=== PATIENT | female | born 1945 | race Caucasian/White ===

== ENCOUNTER 2023-05-05 09:20 | Outpatient (OUT) | payer MEDICARE, SELFPAY ==
[2023-05-05 10:12] LABS: Estimated Average Glucose 157 mg/dL; Glycohemoglobin A1C 7.1 % (4.5-6.2)
== END 2023-05-05 09:21 | disposition home or self-care (01) ==
PROVIDERS: PCP Internal Medicine; Visit Provider Internal Medicine
DX: E11.65 Type 2 diabetes mellitus with hyperglycemia (principal)
CPT/HCPCS: 36415; 83036

== ENCOUNTER 2023-12-23 08:47 | Outpatient (OUT) | payer MEDICARE, SELFPAY ==
[2023-12-23 11:10] LABS: Estimated Average Glucose 183 mg/dL
== END 2023-12-23 08:48 | disposition home or self-care (01) ==
PROVIDERS: PCP Internal Medicine; Visit Provider Internal Medicine
DX: E11.65 Type 2 diabetes mellitus with hyperglycemia (principal)
CPT/HCPCS: 36415; 83036

== ENCOUNTER 2024-04-18 09:39 | Outpatient (OUT) | payer MEDICARE, SELFPAY ==
[2024-04-18 11:38] LABS: Estimated Average Glucose 157 mg/dL; Glycohemoglobin A1C 7.1 % (4.5-6.2)
== END 2024-04-18 09:40 | disposition home or self-care (01) ==
LOC: LAB 09:40
PROVIDERS: PCP Internal Medicine; Visit Provider Internal Medicine
DX: E11.65 Type 2 diabetes mellitus with hyperglycemia (principal)
CPT/HCPCS: 36415; 83036

== ENCOUNTER 2024-08-20 08:13 | Outpatient (RCR) | payer MEDICARE, SELFPAY | END 2024-09-03 14:54 | disposition home or self-care (01) | LOC: PT 08:13 | PROVIDERS: PCP Internal Medicine; Visit Provider Nurse Practitioner Family | DX: M17.12 Unilateral primary osteoarthritis, left knee (principal); Z98.890 Other specified postprocedural states; Z87.828 Personal history of other (healed) physical injury and trauma | CPT/HCPCS: 97035; 97110; 97140; 97161 ==

== ENCOUNTER 2024-09-02 09:47 | Outpatient (OUT) | payer MEDICARE, SELFPAY ==
--- OUTSIDE RECORDS SUMMARY | 2024-09-02 10:09 | XMS_ITS | CCD ---
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 [employer] Name Role Phone DO Nixon Villagomez Primary Care Provider MD Saman Chen Attending Provider Self, Referral Attending Provider Unavailable DO Laurel Jones Referring Provider DO Laurel Jones Attending Provider DR NIXON VILLAGOMEZ Admitting Unavailable HERNANDO, DR KNIGHT Attending Unavailable HERNANDO, DR KNIGHT Primary Care Unavailable HERNANDO, DR KNIGHT Consulting Unavailable Nixon Villagomez Unavailable DO Nixon Villagomez Primary Care Provider Self, Referral Attending Provider Unavailable DO Nixon Villagomez Primary Care Provider [phone] DO Nixon Villagomez Attending Provider Nixon Villagomez Admitting Unavailable Hernando, Nixon Attending Unavailable Hernando, Nixon Primary Care Unavailable Nixon Villagomez Admitting Unavailable Hernando, Nixon Attending Unavailable Hernando, Nixon Primary Care Unavailable ZEV, RICK Wild Referring Unavailable HERNANDO, NIXON Laurent Primary Care Unavailable ZEV, RICK Wild Attending Unavailable ZEV, RICK Wild Referring Unavailable BALL, NIXON Laurent Primary Care Unavailable ZEV, RICK Wild Referring Unavailable BALL, NIXON E Primary Care Unavailable ZEV, RICK Wild Admitting Unavailable ZEV, RICK Wild Attending Unavailable EVELINE ALMAGUER Attending Unavailable NIXON VILLAGOMEZ Primary Care Unavailable Nixon Villagomez MD Primary Care Provider GREGORIO KINSEY Attending Unavailable GREGORIO KINSEY Attending Unavailable GREGORIO KINSEY Attending Unavailable APLING, REANNA B Attending Unavailable APLING, REANNA B Referring Unavailable APLING, REANNA B Attending Unavailable GREGORIO KINSYE Attending Unavailable APLING, REANNA B Referring Unavailable ZEVRICK Attending Unavailable APLING, REANNA B Attending Unavailable APLING, REANNA B Attending Unavailable GREGORIO KINSEY Attending Unavailable REANNA SIMMONS Attending Unavailable Allergies Allergy Classification Reported Allergen(s) Allergy Type Date of Onset Reaction(s) Facility (1 source) Ibandronate; Translations: [IBANDRONATE] Drug Allergy 05-21-2024 [facility] (20 sources) Ibandronate Drug Allergy 04-15-2024 [facility] Work Phone: Medications Current Medications Medication Drug Class(es) Dates Sig (Normalized) Sig (Original) acetaminophen 325 mg / HYDROcodone bitartrate 5 mg oral tablet (4 sources) Opioid Agonist Start: 06-06-2024 End: 06-12-2024 take 1 tablet by mouth every six hours for pain HYDROcodone-acetam inophen ([place]) 5-325 MG tablet Indications: Post-op pain Take 1 tablet by mouth every 6 (six) hours if needed for severe pain for up to 3 days 12 tablet 06/06/2024 06/12/2024 Discontinued (Med list cleanup) Calcium + D 500-1000-40 MG-UNT-MCG (14 sources) Calcium + D 500-1000-40 MG-UNT-MCG as directed Orally Active calcium carbonate 1500 mg oral tablet (20 sources) calcium carbonat e 1500 (600 Ca) MG tablet Take 1,500 mg by mouth every 12 (twelve) hours. Active calcium carbonate 1250 mg / cholecalciferol 1000 unt / vitamin k 0.4 mg chewable tablet (20 sources) Vitamin D Start: 12-20-2023 Calcium-Vitamin D-Vitamin K 500-1000-40 MG-UNT-MCG chewable tablet 1 tablet 12/20/2023 Active Start: 12-20-2023 take 1 tablet by talita th once daily Calcium-Vitamin D3-Vitamin K Active 1 TAB PO Daily December 20, 2023 12:00am Calcium + D 500- 1000-40 MG-UNT-MCG as directed Orally Active Contour Next Test - (18 sources) Contour Next Sania t - Use to test home BS In Vitro daily for 30 days Active Contour Next Sania t - as directed In Vitro Active glyBURIDE 1.25 mg oral tablet (20 sources) Sulfonylurea Start: 02-26-2024 End: 04-23-2024 Glyburide Discontinued 0 .ROUTE .COMPLEX 270 February 26, 2024 6:51am April 23, 2024 10:37am TAKE 2 TABLETS IN THE MORNING AND 1 TABLET IN THE EVENING Start: 02-01-2024 End: 02-26-2024 take 2 tablets by mouth in the morning, then take 1 tablet by mouth in the evening Glyburide Discontinued 1.25 MG PO .COMPLEX 90 February 01, 2024 4:50pm February 26, 2024 6:51am 2 tablets in the morning and 1 tablet in the evening Start: 12-26-2023 End: 01-26-2024 take 2.5 mg by mouth once daily Glyburide Discontinued 2.5 MG PO Daily December 26, 2023 7:29am January 26, 2024 3:20pm Start: 08-04-2022 End: 12-26-2023 take 1 tablet by mouth at mealtime glyBURIDE (Diabeta) 1.25 MG tablet Take 1.25 mg by mouth in the morning. Take with meals. 08/04/2022 Active Start: 08-04-2022 take 1 tablet by mouth at dinn er glyBURIDE 1.25 MG 1 tablet Orally 30 minutes prior to evening meal for 30 days January, Active Start: 08-04-2022 End: 02-01-2024 take 1.25 mg by mouth twice daily Glyburide Active 1.25 MG PO Twice daily April 23, 2024 10:36am glyBURIDE 2.5 MG 30 minutes prior to a meal Orally Twice daily for 90 days Active losartan potassium 25 mg oral tablet (20 sources) Angiotensin 2 Receptor Loyd Start: 07-03-2023 End: 11-06-2023 take 1 tablet by mouth once daily losartan (Cozaar) 25 MG tablet TAKE 1 TABLET BY MOUTH EVERY DAY FOR 30 DAYS 07/03/2023 Active metroNIDAZOLE 7.5 mg/ml topical cream (14 sources) Nitroimidazole Antimicrobial metroNIDAZOLE 0.75 % 1 application Externally Twice a day for 30 days Active olmesartan medoxomil 5 mg oral tablet (1 source) Angiotensin 2 Receptor Loyd Start: 06-06-2023 take 1 tablet by mouth every twenty-four hours Olmesartan Medoxomil 5 MG 1 tablet Orally Once a day for 30 days Jun, Active omeprazole 40 mg delayed release oral capsule (20 sources) Proton Pump Inhibitor Start: 12-20-2023 take 1 capsule by mouth every twenty-four hours as needed omeprazole (PriLOSEC) [address] capsule Take 40 mg by mouth Daily as needed 12/20/2023 Active Start: 08-10-2023 take 1 capsule by [facility] once daily Omeprazole 40 MG 1 capsule 30 minutes before morning meal Orally Once a day for 30 days Aug, Active tetracycline hydrochloride 250 mg oral capsule (4 sources) Tetracycline-class Antimicrobial take 1 capsule by mouth every six hours Tetracycline HCl 250 MG 1 capsule on an empty stomach Orally every 6 hrs Active Completed/Discontinued Medications Medication Drug Class(es) Dates Sig (Normalized) Sig (Original) diclofenac sodium 75 mg delayed release oral tablet (6 sources) Nonsteroidal Anti-inflammatory Drug Start: 04-15-2024 End: 05-15-2024 take 1 tablet by mouth in the morning diclofenac (Voltaren) 75 MG EC tablet Indications: Arthritis of left knee Take 1 tablet (75 mg) by mouth in the morning and 1 tablet (75 mg) before bedtime. Do not crush, chew, or split.. 60 tablet 2 04/15/2024 05/14/2024 Discontinued (Discontinued by another clinician) Problems Active Problems Problem Classification Problem Date Documented Date Episodic/Chronic Calculus of urinary tract (20 sources) Kidney stone; Translations: [Calculus of kidney] Episodic Diabetes mellitus with complications (20 sources) Type 2 diabetes mellitus with hyperglycemia; Translations: [Hyperglycemia due to type 2 diabetes mellitus] Onset: 10-14-2022 Chronic Diabetes mellitus without complication (18 sources) Type 2 diabetes mellitus without complications; Translations: [Diabetes mellitus without complication] Onset: 03-18-2013 05-10-2024 Chronic Disorders of lipid metabolism (20 sources) Pure hypercholesterolemia, unspecified; Translations: [Hypercholesterolemia] Onset: 10-17-2022 Chronic Esophageal disorders (20 sources) Gastro-esophageal reflux disease with esophagitis; Translations: [Gastroesophageal reflux disease with esophagitis without hemorrhage] Onset: 05-10-2024 12-20-2023 Chronic Essential hypertension (20 sources) Essential hypertension; Translations: [Essential (primary) hypertension] Onset: 08-31-2023 Chronic Gout and other crystal arthropathies (4 sources) Chondrocalcinosis of wrist joint; Translations: [Other chondrocalcinosis, right wrist] Chronic Joint disorders and dislocations; trauma-related (1 source) Derangement of left knee; Translations: [Unspecified internal derangement of left knee] 04-30-2024 Chronic Menopausal disorders (17 sources) Postartificial menopausal syndrome; Translations: [Other specified menopausal and perimenopausal disorders] Onset: 05-10-2024 05-10-2024 Chronic Mycoses (2 sources) Onychomycosis; Translations: [Tinea unguium] 07-22-2024 Episodic Nutritional deficiencies (20 sources) Vitamin D deficiency, unspecified; Translations: [Vitamin D deficiency] Onset: 10-17-2022 Chronic Osteoarthritis (10 sources) Arthritis of left knee; Translations: [Unilateral primary osteoarthritis, left knee] 06-07-2024 Chronic Osteoporosis (20 sources) Primary osteoporosis; Translations: [Age-related osteoporosis without current pathological fracture] Onset: 05-10-2024 Chronic Other aftercare (2 sources) Other nursing home (current) drug therapy; Translations: [OTH LONGTERM CURRENT DRUG THERAPY] Onset: 10-17-2022 Episodic Other circulatory disease (14 sources) Elevated blood-pressure reading without diagnosis of hypertension; Translations: [Elevated blood-pressure reading, without diagnosis of hypertension] Episodic Other circulatory disease (2 sources) Elevated blood-pressure reading, without diagnosis of hypertension Episodic Other connective tissue disease (2 sources) Pain of toe of left foot; Translations: [Pain in left toe(s)] 07-22-2024 Episodic Other connective tissue disease (2 sources) Pain of toe of right foot; Translations: [Pain in right toe(s)] 07-22-2024 Episodic Other diseases of veins and lymphatics (2 sources) Vascular insufficiency; Translations: [Venous insufficiency (chronic) (peripheral)] 07-22-2024 Episodic Other inflammatory condition of skin (18 sources) Rosacea; Translations: [Rosacea, unspecified] Chronic Other inflammatory condition of skin (3 sources) Rosacea, unspecified Chronic Other nervous system disorders (1 source) Postoperative pain ; Translations: [Other acute postprocedural pain] 06-04-2024 Episodic Other nutritional; endocrine; and metabolic disorders (17 sources) Overweight; Translations: [Overweight] 12-21-2023 Episodic Other nutritional; endocrine; and metabolic disorders (4 sources) Overweight; Translations: [Overweight] Episodic Other screening for suspected conditions (not mental disorders or infectious disease) (4 sources) Encounter for screening mammogram for malignant neoplasm of breast; Translations: [Encounter for screening for malignant neoplasm of colon] Onset: 04-19-2024 Episodic Residual codes; unclassified (2 sources) Asymptomatic menopausal state; Translations: [Asymptomatic menopausal state] Onset: 04-19-2024 Episodic Rheumatoid arthritis and related disease (20 sources) Inflammatory polyarthropathy; Translations: [Inflammatory polyarthropathy] Onset: 05-10-2024 Chronic Spondylosis; intervertebral disc disorders; other back problems (18 sources) Cervical spondylosis; Translations: [Spondylosis without myelopathy or radiculopathy, cervical region] Chronic Sprains and strains (1 source) Strain of muscle, fascia and tendon at neck level, initial encounter Episodic Unclassified (1 source) left knee meniscal tear Onset: 06-05-2024 Past or Other Problems Problem Classification Problem Date Documented Da te Episodic/Chronic Esophageal disorders (1 source) Esophageal disorders Joint disorders and dislocations; trauma-related (2 sources) Acute meniscal tear, medial; Translations: [Complex tear of medial meniscus, current injury, left knee, initial encounter] 05-14-2024 Episodic Other non-traumatic joint disorders (2 sources) Pain in left knee; Translations: [Pain in joint, lower leg] 05-14-2024 Episodic Results Test Name Value Interpretation Reference Range Facility BASIC METABOLIC PANLon 05-21 Anion gap [Moles/Vol] 10 mmol/L Normal 5-15 [facility] Comment on above: Performed By: #### B MP #### [facility] ([id number]) [address] [facility] [facility] [facility] [address] [place] [address] Calcium [Mass/Vol] 9.6 mg/dL Normal 8.5-10.5 [facility] Comment on above: Performed By: #### B MP #### [facility] ([id number]) [address] [facility] [place] [address] Chloride [Moles/Vol] 102 mmol/L Normal 98-109 [facility] Comment on above: Performed By: #### B MP #### [facility] ([id number]) [address] [facility] [place] [address] CO2 [Moles/Vol] 28 mmol/L Normal 22-32 [facility] Comment on above: Performed By: #### B MP #### [facility] ([id number]) [address] [address] [place] [address] Creatinine [Mass/Vol] 0.72 mg/dL Normal 0.40-1.00 [facility] Comment on above: Result Comment: METH OD TRACEABLE TO IDMS STANDARD Performed By: #### B MP #### [facility] ([id number]) [address] [address] [place] [address] GFR/1.73 sq M.predicted among non-blacks MDRD (S/P/Bld) [Vol rate/Area] 86 mL/min/{1.73_m2} Normal >59 [facility] Comment on above: Result Comment: Reported eGFR is based on the CKD-EPI 2020 equation that does not use a race coefficient. Performed By: #### B MP #### [facility] ([id number]) [address] [address] [place] [address] Glucose [Mass/Vol] 158 mg/dL High 65-99 [facility] Comment on above: Performed By: #### B MP #### [facility] ([id number]) [address] [address] [place] [address] Potassium [Moles/Vol] 4.2 mmol/L Normal 3.5-5.0 [facility] Comment on above: Performed By: #### B MP #### [facility] ([id number]) [address] [address] [place] [address] Sodium [Moles/Vol] 140 mmol/L Normal 134-146 [facility] Comment on above: Performed By: #### B MP #### [facility] ([id number]) [address] [address] [place] [address] Urea nitrogen [Mass/Vol] 17 mg/dL Normal 5-27 [facility] Comment on above: Performed By: #### B #### [facility] ([id number]) [address] [place] [address] Basic metabolic 1998 panelon 05-21-2024 Anion gap [Moles/Vol] 10 mmol/L 5 - 15 mmol/L [facility] Calcium [Mass/Vol] 9.6 mg/dL 8.5 - 10. 5 mg/dL [facility] Chloride [Moles/Vol] 102 mmol/L 98 - 10 9 mmol/L [facility] CO2 [Moles/Vol] 28 mmol/L 22 - 32 mmol/L [facility] Creatine [Mass/Vol] 0.72 mg/dL 0.40 - 1 .00 mg/dL [facility] Comment on above: METHOD TRACEABLE TO IDNH STANDARD GFR/1.73 sq M.predicted among non-blacks MDRD (S/P/Bld) [Vol rate/Area] 86 mL/min/{1.73_m2} - PINF [facility] Comment on above: Reported eGFR is based on the CKD-EPI 2020 equation that does not use a race coefficient. PERFORMED AT [facility] [address] [address] Glucose [Mass/Vol] 158 mg/dL High 65 - 99 mg/dL [facility] Interpretation and review of laboratory results Abnormal [facility] Potassium [Moles/Vol] 4.2 mmol/L 3.5 - 5.0 mmol/L [facility] Sodium [Moles/Vol] 140 mmol/L 134 - 146 mmol/L [facility] Urea nitrogen [Mass/Vol] 17 mg/dL 5 - 27 mg/dL [facility]NEE LEFT WO IV CONTRASTo n 05-13-2024 MR KNEE LEFT WO IV CONTRAST Exam: MR KNEE LEFT WO IV CONTRAST History: Knee pain Technique: Multiplanar multisequence MRI of the knee was performed without contrast. Comparison: Radiographs April 15, 2024 Findings: Quadriceps and patellar tendons are intact. Small joint effusion. Anterior and posterior cruciate ligaments are intact. The medial collateral ligament, lateral collateral ligament, and popliteus are intact. Complex tear of the posterior horn through body and anterior horn/root of the medial meniscus including near complete if not complete radial tear of the anterior horn/root. The lateral meniscus is intact. 4 mm subcortical insufficiency fracture of the outer weightbearing medial femoral condyle with associated bone marrow edema but no cortical depression. High-grade partial-thickness cartilage loss of the weightbearing medial femoral condyle without well-defined cartilage defect. Full-thickness cartilage loss of the median patellar ridge and medial patellar facet with a few tiny foci of subcortical bone marrow edema. High-grade partial-thickness cartilage loss of the medial femoral trochlea and femoral trochlear groove without well-defined cartilage defect. Popliteal fossa structures are intact. No Bryant cyst. IMPRESSION: Complex tear of the medial meniscus. 4 mm subcortical insufficiency fracture of the weightbearing medial femoral condyle. ELECTRONICALLY SIGNED BY: Steve Cristobal DO Normal Not Available MM screening mammo BI w/CADo n 04-19-2024 MM screening mammo BI w/CAD [facility] Main [place] [address] [place] [address] Mammography Report Signed Patient: Sarai Alcazar MR#: [id number] : 1945 Acct:[id number] Age/Sex: 79 / F ADM Date: 04/19/24 Loc: [place] Room: Type: [facility] Attending Dr: Nixon Villagomez DO Copies to: Nixon Villagomez DO Ordering Provider: Nixon Villagomez DO Date of Service: 04/19/24 MM/MM screening mammo BI w/CAD: Screening mammogram for breast cancer BILATERAL Screening Full Field digital mammogram with 3-D imaging. Full field digital CC and MLO imaging performed. CAD utilized. COMPARISON: 02/07/2023 HISTORY: Annual screening BREAST COMPOSITION: Scattered fibroglandular densities of the breast parenchyma identified BREAST CALCIFICATIONS: Benign calcifications present. VASCULAR CALCIFICATIONS: Present ARCHITECTURAL DISTORTION: None BREAST NODULE: None AXILLARY LYMPH NODES: Normal POSTSURGICAL CHANGES: None MM/MM screening mammo BI w/CAD IMPRESSION: No mammographic evidence of malignancy. Routine follow-up recommended in one year. RESULT CODE: 2 Benign Findings(s) DENSITY CODE: 2 (approximately 25-50% glandular) FOLLOW UP: 1YR THE FALSE-NEGATIVE RATE OF MAMMOGRAPHY IS APPROXIMATELY 10%. IMAGING OF A PALPABLE ABNORMALITY MUST BE BASED ON CLINICAL GROUNDS. PATIENT WAS ENTERED INTO A REMINDER SYSTEM WITH A TARGET DUE DATE FOR THE NEXT MAMMOGRAM. Impression dictated by: Iglesia Guallpa M.D.04/19/2024 8:38 AM Dictation Location: [facility] Transcribed By: [facility] 04/19/24837 Dictated By: Iglesia Guallpa DO 04/19/24832 Signed By: 04/19/24837 Normal [facility] Glucose mean value [Mass/vol ume] in Blood Estimated from glycated hemoglobinon 04-18-2024 Average glucose Estimated from glycated hemoglobin (Bld) [Mass/Vol] 157 mg/dL [facility] - Hematology and Cell countson 04-18-2024 HbA1c (Bld) [Mass fraction] 7.1 % High 4.5-6.2 [facility] Comment on above: ADA RECOMMENDED LIMI T 4.0 - 6.0ADA THERAPEUTIC TARGET < 7.0ACTION SUGGESTED> 7.0 A1C with Estimated Average G luon 08-31-2023 Glucose [Mass/Vol] 177 mg/dL Normal [facility] Comment on above: Order Comment: Reaso n for Exam Type 2 diabetes mellitus with hyperglycemia, without long-te Result Comment: PERF ORMED BY: [place] [address] PATHOLOGIST PACKING MACHINE PILOT CAN ROUTER SAULO NICHOLS M.D. Performed By: #### U RMA, CBC, BMP, LIPID, A1C WT eA #### [facility] [address] HbA1c (Bld) [Mass fraction] 7.8 % High 4.3-5.6 [facility] Comment on above: Order Comment: Reaso n for Exam Type 2 diabetes mellitus with hyperglycemia, without long-te Result Comment: Incr eased risk for diabetes: 5.7 - 6.4 diabetes: >6.4 glycemic control for adults with diabetes: <7.0 Performed By: #### U RMA, CBC, BMP, LIPID, A1C WTH eA #### [facility] [address] [place] [id number] [facility] Basic Metabolic Panelon 12-2 Anion gap [Moles/Vol] 10.1 mmol/L Normal 6.0-15.0 [facility] Comment on above: Order Comment: Reaso n for Exam Primary hypertension Reason for Exam Mixed hyperlipidemia Performed By: #### U RMA, CBC, BMP, LIPID, A1C WTH eA #### [facility] [address] [place] [id number] [facility] Calcium [Mass/Vol] 9.4 mg/dL Normal 8.6-10.3 [facility] Comment on above: Order Comment: Reaso n for Exam Primary hypertension Reason for Exam Mixed hyperlipidemia Performed By: #### U RMA, CBC, BMP, LIPID, A1C WTH eA #### [facility] [address] [place] [address] [place] Chloride [Moles/Vol] 102 mmol/L Normal 98-107 [facility] Comment on above: Order Comment: Reaso n for Exam Primary hypertension Reason for Exam Mixed hyperlipidemia Performed By: #### U RMA, CBC, BMP, LIPID, A1C WTH eA #### [facility] [address] [place] [id number] [place] CO2 [Moles/Vol] 31.4 mmol/L High 21.0-31.0 [facility] Comment on above: Order Comment: Reaso n for Exam Primary hypertension Reason for Exam Mixed hyperlipidemia Performed By: #### U RMA, CBC, BMP, LIPID, A1C WTH eA #### [facility] [address] [place] [id number] [place] Creatinine [Mass/Vol] 0.71 mg/dL Normal 0.60-1.20 [facility] Comment on above: Order Comment: Reaso n for Exam Primary hypertension Reason for Exam Mixed hyperlipidemia Performed By: #### U RMA, CBC, BMP, LIPID, A1C WTH eA #### [facility] [address] [place] [id number] [place] GFR/1.73 sq M.predicted MDRD (S/P/Bld) [Vol rate/Area] mL/min/{1.73_m2} Normal [facility] Comment on above: Order Comment: Reaso n for Exam Primary hypertension Reason for Exam Mixed hyperlipidemia Performed By: #### U RMA, CBC, BMP, LIPID, A1C WTH eA #### [facility] [address] Glucose [Mass/Vol] 142 mg/dL High 70-100 [facility] Comment on above: Order Comment: Reaso n for Exam Primary hypertension Reason for Exam Mixed hyperlipidemia Result Comment: [place] Glucose Reference Range is dependent on time and content of last meal. Glucose of more than 200 mg/dL in a nonstressed, ambulatory subject supports the diagnosis of Diabetes Mellitus. ADA recommended reference range Performed By: #### U RMA, CBC, BMP, LIPID, A1C WTH eA #### [facility] [address] Potassium [Moles/Vol] 4.5 mmol/L Normal 3.5-5.1 [facility] Comment on above: Order Comment: Reaso n for Exam Primary hypertension Reason for Exam Mixed hyperlipidemia Performed By: #### U RMA, CBC, BMP, LIPID, A1C WTH eA #### [address] Sodium [Moles/Vol] 139 mmol/L Normal 136-145 [facility] Comment on above: Order Comment: Reaso n for Exam Primary hypertension Reason for Exam Mixed hyperlipidemia Performed By: #### U RMA, CBC, BMP, LIPID, A1C WTH eA #### [address] Urea nitrogen [Mass/Vol] 15 mg/dL Normal 7-25 [facility] Comment on above: Order Comment: Reaso n for Exam Primary hypertension Reason for Exam Mixed hyperlipidemia Performed By: #### U RMA, CBC, BMP, LIPID, A1C WTH eA #### [address] Complete Blood Count Auto Di ffon 08-31-2023 Basophils (Bld) [#/Vol] 0.0 10*3/uL Normal 0.0-0.2 [facility] Comment on above: Order Comment: Reaso n for Exam Primary hypertension;Type 2 diabetes mellitus with hyperglyc Result Comment: PERF ORMED BY: [place] [address] PATHOLOGIST PACKING MACHINE PILOT CAN ROUTER SAULO NICHOLS M.D. Performed By: #### U RMA, CBC, BMP, LIPID, A1C WTH eA #### [facility] [facility] [address] [place] [address] [place] Basophils/100 WBC (Bld) 0.4 % Normal . [facility] Comment on above: Order Comment: Reaso n for Exam Primary hypertension;Type 2 diabetes mellitus with hyperglyc Performed By: #### U RMA, CBC, BMP, LIPID, A1C WTH eA #### [address] Eosinophils (Bld) [#/Vol] 0.2 10*3/uL Normal 0.0-0.45 [facility] Comment on above: Order Comment: Reaso n for Exam Primary hypertension;Type 2 diabetes mellitus with hyperglyc Performed By: #### U RMA, CBC, BMP, LIPID, A1C WTH eA #### [place] [address] [place] Eosinophils/100 WBC (Bld) 3.7 % Normal . [facility] Comment on above: Order Comment: Reaso n for Exam Primary hypertension;Type 2 diabetes mellitus with hyperglyc Performed By: #### U RMA, CBC, BMP, LIPID, A1C WTH eA #### [address] Erythrocyte distribution width (RBC) [Ratio] 14.0 % Normal 11.9-15.3 [facility] Comment on above: Order Comment: Reaso n for Exam Primary hypertension;Type 2 diabetes mellitus with hyperglyc Performed By: #### U RMA, CBC, BMP, LIPID, A1C WTH eA #### [address] Hematocrit (Bld) [Volume fraction] 39.6 % Normal 34.0-46.4 [facility] Comment on above: Order Comment: Reaso n for Exam Primary hypertension;Type 2 diabetes mellitus with hyperglyc Performed By: #### U RMA, CBC, BMP, LIPID, A1C WTH eA #### [address] Hemoglobin (Bld) [Mass/Vol] 13.6 g/dL Normal 11.8-15.4 [facility] Comment on above: Order Comment: Reaso n for Exam Primary hypertension;Type 2 diabetes mellitus with hyperglyc Performed By: #### U RMA, CBC, BMP, LIPID, A1C WTH eA #### [address] Lymphocytes (Bld) [#/Vol] 1.7 10*3/uL Normal 1.00-4.8 [facility] Comment on above: Order Comment: Reaso n for Exam Primary hypertension;Type 2 diabetes mellitus with hyperglyc Performed By: #### U RMA, CBC, BMP, LIPID, A1C WTH eA #### [place] [address] [place] Lymphocytes/100 WBC (Bld) 33.1 % Normal . [facility] Comment on above: Order Comment: Reaso n for Exam Primary hypertension;Type 2 diabetes mellitus with hyperglyc Performed By: #### U RMA, CBC, BMP, LIPID, A1C WTH eA #### [address] MCH (RBC) [Entitic mass] 29.4 pg Normal 24.7-34.3 [facility] Comment on above: Order Comment: Reaso n for Exam Primary hypertension;Type 2 diabetes mellitus with hyperglyc Performed By: #### U RMA, CBC, BMP, LIPID, A1C WTH eA #### [address] MCV (RBC) [Entitic vol] 85.8 fL Normal 80-100 [facility] Comment on above: Order Comment: Reaso n for Exam Primary hypertension;Type 2 diabetes mellitus with hyperglyc Performed By: #### U RMA, CBC, BMP, LIPID, A1C WTH eA #### [address] Mean Corpuscular HGB Conc 34.2 g/dL Normal 32.0-35.0 [facility] Comment on above: Order Comment: Reaso n for Exam Primary hypertension;Type 2 diabetes mellitus with hyperglyc Performed By: #### U RMA, CBC, BMP, LIPID, A1C WTH eA #### [facility] [address] [place] [address] [place] Monocytes (Bld) [#/Vol] 0.4 10*3/uL Normal 0.0-0.8 [facility] Comment on above: Order Comment: Reaso n for Exam Primary hypertension;Type 2 diabetes mellitus with hyperglyc Performed By: #### U RMA, CBC, BMP, LIPID, A1C WTH eA #### [facility] [address] [place] [address] [place] Monocytes/100 WBC (Bld) 7.1 % Normal . [facility] Comment on above: Order Comment: Reaso n for Exam Primary hypertension;Type 2 diabetes mellitus with hyperglyc Performed By: #### U RMA, CBC, BMP, LIPID, A1C WTH eA #### [place] [address] [place] Neutrophils (Bld) [#/Vol] 2.9 10*3/uL Normal 1.8-7.7 [facility] Comment on above: Order Comment: Reaso n for Exam Primary hypertension;Type 2 diabetes mellitus with hyperglyc Performed By: #### U RMA, CBC, BMP, LIPID, A1C WTH eA #### [place] [address] [place] Neutrophils/100 WBC (Bld) 55.7 % Normal . [facility] Comment on above: Order Comment: Reaso n for Exam Primary hypertension;Type 2 diabetes mellitus with hyperglyc Performed By: #### U RMA, CBC, BMP, LIPID, A1C WTH eA #### [facility] [address] [place] [id number] [place] NRBC% 0.1 /100{WBC} Normal 0-0.5 [facility] Comment on above: Order Comment: Reaso n for Exam Primary hypertension;Type 2 diabetes mellitus with hyperglyc Performed By: #### U RMA, CBC, BMP, LIPID, A1C WTH eA #### [place] [id number] [place] Platelet mean volume (Bld) [Entitic vol] 8.0 fL Normal 6.3-10.7 [facility] Comment on above: Order Comment: Reaso n for Exam Primary hypertension;Type 2 diabetes mellitus with hyperglyc Performed By: #### U RMA, CBC, BMP, LIPID, A1C WTH eA #### [facility] [address] [place] [address] [facility] Platelets (Bld) [#/Vol] 196 10*3/uL Normal 150-450 [facility] Comment on above: Order Comment: Reaso n for Exam Primary hypertension;Type 2 diabetes mellitus with hyperglyc Performed By: #### U RMA, CBC, BMP, LIPID, A1C WTH eA #### [facility] [address] [place] [address] [facility] RBC (Bld) [#/Vol] 4.62 10*6/uL Normal 3.60-5.00 [facility] Comment on above: Order Comment: Reaso n for Exam Primary hypertension;Type 2 diabetes mellitus with hyperglyc Performed By: #### U RMA, CBC, BMP, LIPID, A1C WTH eA #### [facility] [address] [place] [id number] [facility] WBC (Bld) [#/Vol] 5.3 10*3/uL Normal 3.8-11.6 [facility] Comment on above: Order Comment: Reaso n for Exam Primary hypertension;Type 2 diabetes mellitus with hyperglyc Performed By: #### U RMA, CBC, BMP, LIPID, A1C WTH eA #### [facility] [address] [place] [id number] [facility] Lipid Panelon 08-31-2023 Cholesterol [Mass/Vol] 186 mg/dL Normal 140-[address] [facility] Comment on above: Order Comment: Reaso n for Exam Primary hypertension Reason for Exam Mixed hyperlipidemia Result Comment: Chol less than 200 mg/dl low risk Chol 201-239 mg/dl borderline risk Chol 240 mg/dl and greater high risk Performed By: #### U RMA, CBC, BMP, LIPID, A1C WTH eA #### [facility] [address] [place] [id number] [facility] Cholesterol in HDL [Mass/Vol] 59 mg/dL Normal 23-92 [facility] Comment on above: Order Comment: Reaso n for Exam Primary hypertension Reason for Exam Mixed hyperlipidemia Result Comment: HDL CHOL ATP-III CLASSIFICATION Cardiovascular Risk HDL > or equal to 60 mg/dL LOW HDL < 40 mg/dL HIGH Performed By: #### U RMA, CBC, BMP, LIPID, A1C WTH eA #### [facility] [address] Cholesterol.total/Chol esterol in HDL [Mass ratio] 3.2 {ratio} Normal <5.0 [facility] Comment on above: Order Comment: Reaso n for Exam Primary hypertension Reason for Exam Mixed hyperlipidemia Result Comment: PERF ORMED BY: [facility] [address] [place] [address] PATHOLOGIST P[employer]ING [employer]ACH[employer] PIL[employer] ROUTER SAULO NICHOLS M.D. Performed By: #### U RMA, CBC, BMP, LIPID, A1C WTH eA #### [facility] [address] LDL Cholesterol,Calculated 102 mg/dL High 0-100 [facility] Comment on above: Order Comment: Reaso n for Exam Primary hypertension Reason for Exam Mixed hyperlipidemia Result Comment: LDL ATP III CLASSIFICATION LDL less than 100 mg/dL Optimal LDL 100-129 mg/dL Near or above optimal LDL 130-159 mg/dL Borderline high LDL 160-189 mg/dL High LDL greater than 189 mg/dL Very high Performed By: #### U RMA, CBC, BMP, LIPID, A1C WTH eA #### [facility] [address] Triglyceride w/Reflex 125 mg/dL Normal 0-149 [facility] Comment on above: Order Comment: Reaso n for Exam Primary hypertension Reason for Exam Mixed hyperlipidemia Result Comment: TRIG ATP III CLASSIFICATION TRIG less than 150 mg/dL Normal TRIG 150-199 mg/dL Borderline high TRIG 200-500 mg/dL High TRIG greater than 500 mg/dL Very high Standard traceable to the Center for Disease Conrtrol and Prevention (CDC) test method. Performed By: #### U RMA, CBC, BMP, LIPID, A1C WTH eA #### [facility] [address] VLDL CHOLESTEROL 25 mg/dL Normal [facility] Comment on above: Order Comment: Reaso n for Exam Primary hypertension Reason for Exam Mixed hyperlipidemia Performed By: #### U RMA, CBC, BMP, LIPID, A1C WT eA #### [facility] [address] [place] [id number] [facility] Microalbumin, Urine (Random) on 08-31-2023 Albumin DL <= 20 mg/L (U) [Mass/Vol] 0.9 mg/dL Normal 0.0-1.8 [facility] Comment on above: Order Comment: Reaso n for Exam Type 2 diabetes mellitus with hyperglycemia, without long-te Result Comment: PERF ORMED BY: [facility] [address] [place] [address] PATHOLOGIST PACKING MACHINE PILOT CAN ROUTER SAULO NICHOLS M.D. Performed By: #### U RMA, CBC, BMP, LIPID, A1C WT eA #### [facility] [address] [place] [address] [facility] Basic Metabolic Panelon 10-05 Calcium [Mass/Vol] 9.3118585 mg/dL 8.5-10 .1 mg/dL [employer] Other CO2 [Moles/Vol] 28.38928893 mmol/L 21.0-3 2.0 mmol/L [employer] Other Creatinine [Mass/Vol] 0.94328862 mg/dL 0. 55-1.02 mg/dL [employer] Other Potassium [Moles/Vol] 4.54294429 mmol/L 3 .5-5.1 mmol/L [employer] Other Urea nitrogen [Mass/Vol] 14.7239012 mg/dL 7.0-18.0 mg/dL [employer] Other Basic Metabolic Panel see note Nor [employer] Other Basic Metabolic Panel 141 mmol/L 136-14 5 mmol/L [employer] Other Basic Metabolic Panel 175 mg/dL Critically high 74-106 mg /dL [employer] Other Basic Metabolic Panel >60 mL/min/1.73m2 > =60 mL/min/1.73m2 [employer] Other CBC AUTO DIFFon 10-14-2022 BASO # 0.0 103/ul Normal 0.0-0.1 [facility] Comment on above: Performed By: #### C BC #### [facility] [address] [place] [address] Dr. Tal Wray Basophils/100 WBC (Bld) 0.4 % Normal 0.2-2.0 [facility] Comment on above: Performed By: #### C BC #### [facility] [address] [place] [address] Dr. Tal Wray EO # 0.1 103/ul Normal 0.0-0.7 [facility] Comment on above: Performed By: #### C BC #### [facility] [address] [place] [address] Dr. Tal Wray Eosinophils/100 WBC (Bld) 1.3 % Normal 0.9-7.0 [facility] Comment on above: Performed By: #### C BC #### [facility] [address] [place] [address] Dr. Tal Wray Erythrocyte distribution width (RBC) [Ratio] 12.7 % Normal 11.0-15.0 [facility] Comment on above: Performed By: #### C BC #### [facility] [address] [place] [address] Dr. Tal Wray Hematocrit (Bld) [Volume fraction] 44.2 % Normal 36.0-48.0 [facility] Comment on above: Performed By: #### C BC #### [facility] [address] [place] [address] Dr. Tal Wray Hemoglobin (Bld) [Mass/Vol] 14.8 g/dL Normal 12.0-16.0 [facility] Comment on above: Performed By: #### C BC #### [facility] [address] [place] [address] Dr. Tal Wray IG # 0.02 10e3/ul Normal 0.00-0.03 [facility] Comment on above: Performed By: #### C BC #### [facility] [address] [place] [address] [address] Tal Wray IG % 0.4 % Normal 0.0-0.5 [facility] Comment on above: Performed By: #### C BC #### [facility] [address] [place] [address] Dr. Tal Wray LYMPH # 1.9 103/ul Normal 1.2-3.8 [facility] Comment on above: Performed By: #### C BC #### [facility] [address] [place] [address] Dr. Tal Wray Lymphocytes/100 WBC (Bld) 33.6 % Normal 20.5-60.0 [facility] Comment on above: Performed By: #### C BC #### [facility] [address] [place] [address] Dr. Tal Wray MANUAL DIFF REQ NO Normal [facility] Comment on above: Performed By: #### C BC #### [facility] [address] [place] [address] Dr. Tal Wray MCH (RBC) [Entitic mass] 28.7 pg Normal 26.7-34.0 [facility] Comment on above: Performed By: #### C BC #### [facility] [address] [place] [address] Dr. Tal Wray MCHC (RBC) [Mass/Vol] 33.5 g/dL Normal 29.9-35.2 [facility] Comment on above: Performed By: #### C BC #### [facility] [address] [place] [address] Dr. Tal Wray MCV (RBC) [Entitic vol] 85.8 fL Normal 81.0-99.0 [facility] Comment on above: Performed By: #### C BC #### [facility] [address] [place] [address] Dr. Tal Wray MONO # 0.4 103/ul Normal 0.3-0.8 [facility] Comment on above: Performed By: #### C BC #### [facility] [address] [place] [address] Dr. Tal Wray Monocytes/100 WBC (Bld) 6.9 % Normal 1.7-12.0 [facility] Comment on above: Performed By: #### C BC #### [facility] [address] [place] [address] Dr. Tal Wray NEUT # 3.2 103/ul Normal 1.4-6.5 [facility] Comment on above: Performed By: #### C BC #### [facility] [address] [place] [address] Dr. Tal Wray Neutrophils/100 WBC (Bld) 57.4 % Normal 43.0-75.0 [facility] Comment on above: Performed By: #### C BC #### [facility] [address] [place] [address] Dr. Tal Wray Platelet mean volume (Bld) [Entitic vol] 9.8 fL Normal 9.5-13.5 [facility] Comment on above: Performed By: #### C BC #### [facility] [address] [place] [address] Dr. Tal Wray PLT 208 103/ul Normal 150-450 [facility] Comment on above: Performed By: #### C BC #### [facility] [address] [place] [address] Dr. Tal Wray RBC 5.15 106/ul Normal 4.20-5.40 [facility] Comment on above: Performed By: #### C BC #### [facility] [address] [place] [address] Dr. aTl Wray WBC 5.5 103/ul Normal 4.0-11.0 [facility] Comment on above: Performed By: #### C BC #### [facility] [address] [place] [address] Dr. Tal Wray GLYCOHEMOGLOBIN A1Con 2022 ADA RECOMMENDATION SEE BELOW Normal [facility] Comment on above: Result Comment: ADA RECOMMENDED LIMIT 4.0 - 6.0 ADA THERAPEUTIC TARGET < 7.0 ACTION SUGGESTED > 7.0 Performed By: #### A 1C #### [facility] [address] [place] [address] [address] Tal Wray Glucose [Mass/Vol] 169 mg/dL Normal [facility] Comment on above: Performed By: #### A 1C #### [facility] [address] [place] [address] [address] Tal Wray HbA1c (Bld) [Mass fraction] 7.5 % Critically high 4.5-6.2 [facility] Comment on above: Performed By: #### A 1C #### [facility] [address] [place] [address] Dr. Tal Wray LIPID PROFILEon 10-14-2022 CHOL-HDL RATIO NORM SEE BELOW Normal [facility] Comment on above: Result Comment: 3.3 - 4.4 LOW RISK 4.4 - 7.1 AVERAGE RISK 7.1 - 11.0 MODERATE RISK >11.0 HIGH RISK Performed By: #### B MP, LIPID #### [facility] [address] [place] [address] Dr. Tal Wray Cholesterol [Mass/Vol] 209 mg/dL Critically high <=200 mg /dL [facility] Comment on above: Performed By: #### B MP, LIPID #### [facility] [address] [place] [address] Dr. Tal Wray Cholesterol in HDL [Mass/Vol] 63 mg/dL Critically high 40-60 mg/dL [facility] Comment on above: Performed By: #### B MP, LIPID #### [facility] [address] [place] [address] Dr. Tal Wray Cholesterol in LDL [Mass/Vol] 120.0 mg/dL Normal [facility] Comment on above: Performed By: #### B MP, LIPID #### [facility] [address] [place] [address] Dr. Tal Wray Cholesterol.total/Chol esterol in HDL [Mass ratio] 3.3 {ratio} [facility] Comment on above: Performed By: #### B MP, LIPID #### [facility] [address] [place] [address] Dr. Tal Wray HDL NORMAL > or = 60 mg/dl - LOW CARDIOVASCULAR RISK <40 mg/dl - HIGH CARDIOVASCULAR RISK Normal [facility] Comment on above: Performed By: #### B MP, LIPID #### [facility] [address] [place] [address] [address] Tal Wray LDL CALC NORMAL SEE BELOW Normal [facility] Comment on above: Result Comment: <100 mg/dl OPTIMAL 100 - 129 mg/dl NEAR OR ABOVE OPTIMAL 130 - 159 mg/dl BORDERLINE HIGH 160 - 189 mg/dl HIGH >190 mg/dl VERY HIGH Performed By: #### B MP, LIPID #### [facility] [address] [place] [address] [address] Tal Wray Triglyceride [Mass/Vol] 130 mg/dL <=150 mg/dL [facility] Comment on above: Performed By: #### B MP, LIPID #### [facility] [address] [place] [address] [address] Tal Wray VLDL CALC 26.0 mg/dL Normal [facility] Comment on above: Performed By: #### B MP, LIPID #### [facility] [address] [place] [address] [address] Tal Wray Lipid Panelon 10-14-2022 Lipid Panel > or = 60 mg/dl - LOW CARDIOVASCULAR RISK <40 mg/dl - HIGH CARDIOVASCULAR RISK [employer] Other Lipid Panel SEE BELOW [employer] Other Lipid Panel 120.0 mg/dL [employer] Other Lipid Panel 26.0 mg/dL [employer] Other MICROALBUMIN, RAND URon 02-1 mALB 3.9 mg/L Normal <=30.0 [facility] Comment on above: Performed By: #### M ALBR #### [facility] [address] [place] [address] Dr. Tal Wray PROF CHEM 8 (BAS METB)on Anion gap [Moles/Vol] 14.8 mmol/L Th [facility] Comment on above: Performed By: #### B MP, LIPID #### [facility] [address] [place] [address] [address] Tal Wray Calcium [Mass/Vol] 9.9 mg/dL Normal 8.5-10.1 [facility] Comment on above: Performed By: #### B MP, LIPID #### [facility] [address] [place] [address] Dr. Tal Wray Chloride [Moles/Vol] 102 mmol/L 98-107 mmol/L [facility] Comment on above: Performed By: #### B MP, LIPID #### [facility] [address] [place] [address] Dr. Tal Wray CO2 [Moles/Vol] 28.3 mmol/L Normal 21.0-32.0 [facility] Comment on above: Performed By: #### B MP, LIPID #### [facility] [address] [place] [address] Dr. Tal Wray Creatinine [Mass/Vol] 0.68 mg/dL Normal 0.55-1.02 [facility] Comment on above: Performed By: #### B MP, LIPID #### [facility] [address] [place] [address] Dr. Tal Wray EGFR-AF YEMENI >60 Normal >=60 [facility] Comment on above: Performed By: #### B MP, LIPID #### [facility] [address] [place] [address] Dr. Tal Wray EGFR-NON AF YEMENI >60 Normal >=60 [facility] Comment on above: Performed By: #### B MP, LIPID #### [facility] [address] [place] [address] Dr. Tal Wray Glucose [Mass/Vol] 175 mg/dL Critically high 74-106 [facility] Comment on above: Performed By: #### B MP, LIPID #### [facility] [address] [place] [address] Dr. Tal Wray Potassium [Moles/Vol] 4.1 mmol/L Normal 3.5-5.1 [facility] Comment on above: Performed By: #### B MP, LIPID #### [facility] [address] [place] [address] [address] Tal Wray Sodium [Moles/Vol] 141 mmol/L Normal 136-145 [facility] Comment on above: Performed By: #### B MP, LIPID #### [facility] [address] [place] [address] [address] Tal Wray Urea nitrogen [Mass/Vol] 14.0 mg/dL Normal 7.0-18.0 [facility] Comment on above: Performed By: #### B MP, LIPID #### [facility] [address] [place] [address] [address] Tal Wray Urea nitrogen/Creatinine [Mass ratio] 20.6 mg/mg [facility] Comment on above: Performed By: #### B MP, LIPID #### [facility] [address] [place] [address] Dr. Tal Wray VITAMIN D 25 OHon 10-14-2022 VIT D 25-OH 42.7 ng/mL [facility] Comment on above: Performed By: #### V ITAD #### [facility] [address] [place] [address] Dr. Tal Wray VIT D RANGES SEE BELOW Normal [facility] Comment on above: Result Comment: <20 ng/mL Vit D deficient 20 - <30 ng/mL Vit D insufficient 30 - 100 ng/mL Vit D sufficient >100 ng/mL Potential Toxicity Performed By: #### V ITAD #### [facility] [address] [place] [address] Dr. Tal Wray Basophils Auto (Bld) [#/Vol] Ordered By: Chikis Beltran on 01-13-2022 Basophils (Bld) [#/Vol] 0.0 10*3/uL 0.0-0.2 [facility] Basophils/100 WBC Auto (Bld) Ordered By: Chikis Beltran on 01-13-2022 Basophils/100 WBC (Bld) 0.4 % . [facility] Blood hemoglobin measurement (mass/volume)Ordered By: Chikis Beltran on 01-13-2022 Hemoglobin (Bld) [Mass/Vol] 13.7 g/dL 11.8-15.4 [facility] Blood leukocytes automated c ount (number/volume)Ordered By: Chikis Beltran on 01-13-2022 WBC (Bld) [#/Vol] 4.8 10*3/uL 4.5-11.0 [facility] Body fluid albumin measureme nt (mass/volume)Ordered By: Chikis Beltran on 01-13-2022 Albumin (Body fld) [Mass/Vol] 4.0 g/dL 3.2-5.5 [facility] Creatinine and Glomerular fi ltration rate.predicted panel (S/P/Bld)Ordered By: Chikis Beltran on 01-13-2022 Creatinine [Mass/Vol] 0.68 mg/dL 0.44-1.03 [facility] Eosinophils Auto (Bld) [#/Vo l]Ordered By: Chikis Beltran on 01-13-2022 Eosinophils (Bld) [#/Vol] 0.1 10*3/uL 0.0-0.45 [facility] Eosinophils/100 WBC Auto (Bl d)Ordered By: Chikis Beltran on 01-13-2022 Eosinophils/100 WBC (Bld) 1.1 % . [facility] Erythrocyte distribution wid th Auto (RBC) [Ratio]Ordered By: Chikis Beltran on 01-13-2022 Erythrocyte distribution width (RBC) [Ratio] 13.6 % 11.9-15.3 [facility] Estimated glomerular filtrat ion rate (GFR) non- AmericanOrdered By: Chikis Beltran on 01-13-2022 GFR/1.73 sq M.predicted among non-blacks MDRD (S/P/Bld) [Vol rate/Area] > 60 mL/Min [facility] Globulin Calc (S) [Mass/Vol] Ordered By: Chikis Beltran on 01-13-2022 Globulin (S) [Mass/Vol] 2.2 g/dL [facility] Hematocrit Auto (Bld) [Volum e fraction]Ordered By: Chikis Beltran on 01-13-2022 Hematocrit (Bld) [Volume fraction] 40.5 % 34.0-46.4 [facility] Laboratory - Hematology and Cell countsOrdered By: Chikis Beltran on 01-13-2022 Nucleated RBC/100 WBC (Bld) [Ratio] 0.1 % 0-0.5 [facility] Lymphocytes Auto (Bld) [#/Vo l]Ordered By: Chikis Beltran on 01-13-2022 Lymphocytes (Bld) [#/Vol] 1.4 10*3/uL 1.00-4.8 [facility] Lymphocytes/100 WBC Auto (Bl d)Ordered By: Chikis Beltran on 01-13-2022 Lymphocytes/100 WBC (Bld) 30.0 % . [facility] MCH Auto (RBC) [Entitic mass ]Ordered By: Chikis eBltran on 01-13-2022 MCH (RBC) [Entitic mass] 28.9 pg 24.7-34.3 [facility] MCHC Auto (RBC) [Mass/Vol]Or dered By: Chikis Beltran on 01-13-2022 MCHC (RBC) [Mass/Vol] 33.9 g/dL 32.0-35.0 [facility] MCV Auto (RBC) [Entitic vol] Ordered By: Chikis Beltran on 01-13-2022 MCV (RBC) [Entitic vol] 85.3 fL 80-100 [facility] Monocytes Auto (Bld) [#/Vol] Ordered By: Chikis Beltran on 01-13-2022 Monocytes (Bld) [#/Vol] 0.4 10*3/uL 0.0-0.8 [facility] Monocytes/100 WBC Auto (Bld) Ordered By: Chikis Beltran on 01-13-2022 Monocytes/100 WBC (Bld) 8.0 % . [facility] Neutrophils Auto (Bld) [#/Vo l]Ordered By: Chikis Beltran on 01-13-2022 Neutrophils (Bld) [#/Vol] 2.9 10*3/uL 1.8-7.7 [facility] Neutrophils/100 WBC Auto (Bl d)Ordered By: Chikis Beltran on 01-13-2022 Neutrophils/100 WBC (Bld) 60.5 % . [facility] No Panel InformationOrdered By: Chikis Beltran on 01-13-2022 Estimated GFR () > 60 mL/Min [facility] Comment on above: GFR estimated refere nce range: According to KDOQI guidelines, <60 ml/min/1.73m2 is sufficient to diagnose a patient with chronic kidney disease. Pharmacy Creatinine Clearance (Chem N/A [facility] Platelet mean volume Auto (B ld) [Entitic vol]Ordered By: Chikis Beltran on 01-13-2022 Platelet mean volume (Bld) [Entitic vol] 8.2 fL 6.3-10.7 [facility] Platelets Auto (Bld) [#/Vol] Ordered By: Chikis Beltran on 01-13-2022 Platelets (Bld) [#/Vol] 205 10*3/uL 150-450 [facility] Protein [Mass/volume] in Ser um or PlasmaOrdered By: Chikis Beltran on 01-13-2022 Protein [Mass/Vol] 6.2 g/dL 6.1-7.9 [facility] RBC Auto (Bld) [#/Vol]Ordere d By: Chikis Beltran on 01-13-2022 RBC (Bld) [#/Vol] 4.75 10*6/uL 3.60-5.00 [facility] Serum or plasma alanine ruelas otransferase measurement without P-5'-P (enzymatic activiOrdered By: Chikis Beltran on 01-13-2022 ALT No additional P-5'-P [Catalytic activity/Vol] 19 U/L 10-60 [facility] Serum or plasma albumin/glob ulin mass ratioOrdered By: Chikis Beltran on 01-13-2022 Albumin/Globulin [Mass ratio] 1.8 {ratio} [facility] Serum or plasma alkaline nery sphatase measurement (enzymatic activity/volume)Ordered By: Chikis Beltran on 01-13-2022 ALP [Catalytic activity/Vol] 103 U/L 32-92 [facility] Serum or plasma aspartate am inotransferase measurement (enzymatic activity/volume)Ordered By: Chikis Beltran on 01-13-2022 AST [Catalytic activity/Vol] 17 U/L 10-42 [facility] Serum or plasma calcium ajson urement (mass/volume)Ordered By: Chikis Beltran on 01-13-2022 Calcium [Mass/Vol] 9.5 mg/dL 8.2-10.2 [facility] Serum or plasma chloride tere surement (moles/volume)Ordered By: Chikis Beltran on 01-13-2022 Chloride [Moles/Vol] 100 mmol/L 95-114 [facility] Serum or plasma glucose jason urement (mass/volume)Ordered By: Chikis Beltran on 01-13-2022 Glucose [Mass/Vol] 153 mg/dL 70-100 [facility] Comment on above: ADA recommended refe rence range Random Glucose Reference Range is dependent on time and content of last meal. Glucose of more than 200 mg/dL in a nonstressed, ambulatory subject supports the diagnosis of Diabetes Mellitus. Serum or plasma potassium me asurement (moles/volume)Ordered By: Chikis Beltran on 01-13-2022 Potassium [Moles/Vol] 4.9 mmol/L 3.5-5.1 [facility] Serum or plasma sodium measu rement (moles/volume)Ordered By: Chikis Beltran on 01-13-2022 Sodium [Moles/Vol] 138 mmol/L 136-146 [facility] Serum or plasma total biliru bin measurement (mass/volume)Ordered By: Chikis Beltran on 01-13-2022 Bilirubin [Mass/Vol] 0.7 mg/dL 0.3-1.2 [facility] Serum or plasma total carbon dioxide measurement (moles/volume)Ordered By: Chikis Beltran on 01-13-2022 CO2 [Moles/Vol] 26.7 mmol/L 22.0-30.0 [facility] Serum or plasma urea nitroge n measurement (mass/volume)Ordered By: Chikis Beltran on 01-13-2022 Urea nitrogen [Mass/Vol] 15 mg/dL 9-23 [facility] Vital Signs Date Time Vital Sign Value Performing Clinician Facility 07-25-2024 09:25-0500 Body height 153.7 cm Gregorio Kinsey DPM Work Phone: [facility] 07-25-2024 09:25-0500 Body mass index (BMI) [Ratio] 26.32 kg/m2 Gregorio Kinsey DPM Work Phone: [facility] 07-25-2024 09:25-0500 Body weight 62.14 kg Gregorio Kinsey DPM Work Phone: [facility] 07-25-2024 09:25-0500 Respiratory rate 18 /min Gregorio Kinsey DPM Work Phone: [facility] 05-27-2024 11:05-0400 Body height 153.67 cm DO Nixon Ball Work Phone: [facility] 05-27-2024 11:05-0400 Body mass index (BMI) [Ratio] 26.6 kg/m2 DO Nixon Ball Work Phone: [facility] 05-27-2024 11:05-0400 Body weight 63.04 kg DO Nixon Ball Work Phone: [facility] 05-27-2024 11:05-0400 Diastolic blood pressure 84 mm[Hg] DO Nixon Ball Work Phone: [facility] 05-27-2024 11:05-0400 Heart rate 68 /min DO Nixon Ball Work Phone: [facility] 05-27-2024 11:05-0400 SaO2% (BldA) [Mass fraction] 98 % DO Nxion Ball Work Phone: [facility] 05-27-2024 11:05-0400 Systolic blood pressure 130 mm[Hg] DO Nixon Ball Work Phone: [facility] 05-14-2024 15:13-0400 Body height 153.7 cm Rick Thomas DO Work Phone: [facility] 05-14-2024 15:13-0400 Body mass index (BMI) [Ratio] 26.32 kg/m2 Rick Thomas DO Work Phone: [facility] 05-14-2024 15:13-0400 Body weight 62.14 kg Rick Thomas DO Work Phone: [facility] 05-09-2024 10:41-0400 Body height 153.7 cm Gregorio Kinsey DPM Work Phone: [facility] 05-09-2024 10:41-0400 Body mass index (BMI) [Ratio] 26.32 kg/m2 Gregorio Kinsey DPM Work Phone: [facility] 05-09-2024 10:41-0400 Body weight 62.14 kg Gregorio Kinsey DPM Work Phone: [facility] 05-09-2024 10:41-0400 Diastolic blood pressure 80 mm[Hg] Gregorio Kinsey DPM Work Phone: [facility] 05-09-2024 10:41-0400 Heart rate 75 /min Gregorio Kinsey DPM Work Phone: [facility] 05-09-2024 10:41-0400 Respiratory rate 18 /min Gregorio Kinsey DPM Work Phone: [facility] 05-09-2024 10:41-0400 Systolic blood pressure 120 mm[Hg] Gregorio Kinsey DPM Work Phone: [facility] 04-23-2024 10:11-0400 Body height 153.67 cm DO Nixon Ball Work Phone: [facility] 04-23-2024 10:11-0400 Body mass index (BMI) [Ratio] 26.9 kg/m2 DO Nixon Ball Work Phone: [facility] 04-23-2024 10:11-0400 Body weight 63.5 kg DO Nixon Ball Work Phone: [facility] 04-23-2024 10:11-0400 Diastolic blood pressure 80 mm[Hg] DO Nixon Ball Work Phone: [facility] 04-23-2024 10:11-0400 Heart rate 66 /min DO Nixon Ball Work Phone: [facility] 04-23-2024 10:11-0400 Respiratory rate 12 /min DO Nixon Ball Work Phone: [facility] 04-23-2024 10:11-0400 Systolic blood pressure 130 mm[Hg] DO Nixon Ball Work Phone: [facility] 12-21-2023 09:41-0400 Body height 153.67 cm [facility] 12-21-2023 09:41-0400 Body mass index (BMI) [Ratio] 27.5 kg/m2 [facility] 12-21-2023 09:41-0400 Body weight 64.92 kg [facility] 12-21-2023 09:41-0400 Diastolic blood pressure 75 mm[Hg] [facility] 12-21-2023 09:41-0400 Heart rate 76 /min [facility] 12-21-2023 09:41-0400 Respiratory rate 12 /min [facility] 12-21-2023 09:41-0400 Systolic blood pressure 135 mm[Hg] [facility] 08-10-2023 10:00-0500 Body height 153.67 cm Nixon Ball Other [facility] Other 08-10-2023 10:00-0500 Body mass index (BMI) [Ratio] 27.12 kg/m2 Nixon Ball Other [facility] Other 08-10-2023 10:00-0500 Body weight 64.05 kg Nixon Ball Other [facility] Other 08-10-2023 10:00-0500 Diastolic blood pressure 80 mm[Hg] Nixon Ball Other [facility] Other 08-10-2023 10:00-0500 Respiratory rate 12 /min Nixon Ball Other [employer] Other 08-10-2023 10:00-0500 Systolic blood pressure 125 mm[Hg] Nixon Ball Other [employer] Other 04-27-2023 09:00-0400 Body height 153.67 cm Nixon Ball Other [employer] Other 04-27-2023 09:00-0400 Body mass index (BMI) [Ratio] 27.04 kg/m2 Nixon Ball Other [employer] Other 04-27-2023 09:00-0400 Body weight 63.87 kg Nixon Ball Other [employer] Other 04-27-2023 09:00-0400 Diastolic blood pressure 80 mm[Hg] Nixon Ball Other [employer] Other 04-27-2023 09:00-0400 Respiratory rate 12 /min Nixon Ball Other [employer] Other 04-27-2023 09:00-0400 Systolic blood pressure 165 mm[Hg] Nixon Ball Other [employer] Other 01-10-2023 11:00-0400 Body height 153.67 cm Nixon Ball Other [employer] Other 01-10-2023 11:00-0400 Body mass index (BMI) [Ratio] 26.66 kg/m2 Nixon Ball Other [employer] Other 01-10-2023 11:00-0400 Body weight 62.96 kg Nixon Ball Other [employer] Other 01-10-2023 11:00-0400 Diastolic blood pressure 77 mm[Hg] Nixon Ball Other [employer] Other 01-10-2023 11:00-0400 Respiratory rate 12 /min Nixon Ball Other [employer] Other 01-10-2023 11:00-0400 Systolic blood pressure 169 mm[Hg] Nixon Ball Other [employer] Other 10-13-2022 12:00-0500 Body height 153.67 cm Nixon Ball Other [employer] Other 10-13-2022 12:00-0500 Body mass index (BMI) [Ratio] 26.04 kg/m2 Nixon Ball Other [employer] Other 10-13-2022 12:00-0500 Body weight 61.51 kg Nixon Ball Other [employer] Other 10-13-2022 12:00-0500 Diastolic blood pressure 84 mm[Hg] Nixon Ball Other [employer] Other 10-13-2022 12:00-0500 Respiratory rate 12 /min Nixon Ball Other [employer] Other 10-13-2022 12:00-0500 Systolic blood pressure 122 mm[Hg] Nixon Ball Other [employer] Other Encounters Encounter Date Encounter Type Care Provider Facility Start: 08-19-2024 End: 08-19-2024 Amy Simmons NP Work Phone: [facility] Start: 08-19-2024 End: 08-19-2024 Amy Simmons NP Work Phone: [facility] Start: 08-19-2024 End: 08-19-2024 Postop follow up visit related to original px Reanna B Apling [employer] DIRECTOR Work Phone: [facility] Comment on above: S/P arthroscopic par tial medial meniscectomy of left knee (Primary Dx); Arthritis of left knee Start: 08-19-2024 End: 08-19-2024 ambulatory REANNA B APLING Not Available Start: 07-25-2024 End: 07-25-2024 Bamboo flowsheet Gregorio Kinsey DPM Work Phone: [facility] Start: 07-25-2024 End: 07-25-2024 Bamboo Fox Technologiestoi Kinsey DPM Work Phone: [facility] Start: 07-25-2024 End: 07-25-2024 Patient encounter procedure Gregorio Kinsey DPM Work Phone: [facility] Comment on above: Diabetes mellitus du e to underlying condition with diabetic polyneuropathy, with long-term current use of insulin ([facility]) (Primary Dx); Onychomycosis; Toe pain, left; Toe pain, right; Venous insufficiency Start: 07-25-2024 End: 07-25-2024 ambulatory GREGORIO KINSEY Not Available Start: 07-10-2024 End: 07-10-2024 Bamboo flowsheet Reanna B Apling YOU[employer] PROGRAM DIRECTOR Work Phone: [facility] Start: 07-10-2024 End: 07-10-2024 Bamboo flowsheet Reanna B Apling YOUTH PROGRAM DIRECTOR Work Phone: [facility] Start: 07-10-2024 End: 07-10-2024 Postop follow up visit related to original px Reanna B Apling [employer] PROGRAM DIRECTOR Work Phone: [facility] Comment on above: Arthritis of left kn ee (Primary Dx); S/P arthroscopic partial medial meniscectomy of left knee Start: 07-10-2024 End: 07-10-2024 ambulatory REANNA B APLING Not Available Start: 06-12-2024 End: 06-12-2024 Bamboo flowsheet Reanna Simmons YOU[employer] PROGRAM DIRECTOR Work Phone: [facility] Start: 06-12-2024 End: 06-12-2024 Bamboo flowsheet Reanna Simmons YOUTH PROGRAM DIRECTOR Work Phone: [facility] Start: 06-12-2024 End: 06-12-2024 Postop follow up visit related to original px Reanna Simmons YOU[employer] PROGRAM DIRECTOR Work Phone: [facility] Comment on above: Arthritis of left kn ee (Primary Dx); S/P arthroscopic partial medial meniscectomy of left knee Start: 06-12-2024 End: 06-12-2024 ambulatory REANNA SIMMONS Not Available Start: 06-06-2024 End: 06-07-2024 Telephone encounter Lissett Lynch RN [facility] Comment on above: Post-op Problem Start: 06-05-2024 End: 06-05-2024 Evaluation and management of inpatient EVELINE ALMAGUER [facility] Start: 06-05-2024 End: 06-05-2024 Evaluation and management of inpatient RICK THOMAS [facility] Start: 06-04-2024 End: 06-06-2024 Refill Surinder Worthy [employer] PROGRAM DIRECTOR Work Phone: [facility] Comment on above: Post-op pain (Primar y Dx) Start: 05-27-2024 End: 05-27-2024 ambulatory DO Nixon Villagomez Work Phone: [facility] Work Phone: Start: 05-27-2024 End: 05-27-2024 Patient encounter procedure DO Nixon Ball Work Phone: [facility] Work Phone: Start: 05-21-2024 End: 05-21-2024 External Result Encounter Rick Thomas DO Work Phone: [facility] External Department Unsolicited Start: 05-21-2024 End: 05-21-2024 External Result Encounter Rick Thomas DO Work Phone: [facility] External Department Unsolicited Start: 05-21-2024 End: 05-21-2024 ambulatory [facility] Start: 05-21-2024 Encounter for other preprocedural examination [facility] Start: 05-14-2024 End: 05-14-2024 Bamboo flowsheet Rick Thomas DO Work Phone: [facility] Start: 05-14-2024 End: 05-14-2024 Bamboo flowsheet Rick Thomas DO Work Phone: [facility] Start: 05-14-2024 End: 05-14-2024 Office outpatient visit 25 minutes Rick Thomas DO Work Phone: [facility] Comment on above: Left knee pain, unsp ecified chronicity (Primary Dx); Complex tear of medial meniscus of left knee as current injury, initial encounter; Primary osteoarthritis of left knee Start: 05-14-2024 End: 05-14-2024 ambulatory RICK THOMAS Not Available Start: 05-13-2024 End: 05-13-2024 ambulatory REANNA SMIMONS Not Available Start: 05-09-2024 End: 05-09-2024 Bamboo flowsheet Gregorio Kinsey DPM Work Phone: [facility] Start: 05-09-2024 End: 05-09-2024 Bamboo flowsheet Gregorio Kinsey DPM Work Phone: [facility] Start: 05-09-2024 End: 05-09-2024 Patient encounter procedure Gregorio Kinsey DPM Work Phone: [facility] Comment on above: Diabetes mellitus du e to underlying condition with diabetic polyneuropathy, with long-term current use of insulin ([facility]) (Primary Dx); Onychomycosis; Toe pain, left; Toe pain, right; Venous insufficiency Start: 05-09-2024 End: 05-09-2024 ambulatory GREGORIO KINSEY Not Available Start: 04-30-2024 End: 04-30-2024 Telephone encounter Reanna Taylor Aplfreddie [employer]GRAM DIRECTOR Work Phone: [facility] Comment on above: MRI Start: 04-23-2024 End: 04-23-2024 ambulatory DO Nixon Ball Work Phone: [facility] Work Phone: Start: 04-23-2024 End: 04-23-2024 Patient encounter procedure DO Nixon Ball Work Phone: [facility] Work Phone: Start: 04-22-2024 End: 04-22-2024 ambulatory REANNA Taylor APLFREDDIE Not Available Start: 04-19-2024 End: 04-19-2024 Patient encounter procedure DO Nixon Ball Work Phone: [facility] Work Phone: Start: 04-19-2024 End: 04-19-2024 ambulatory DO Nixon Ball Work Phone: [facility] Work Phone: Start: 04-18-2024 Non-patient / Non-visit DO Steven mcqueen Ball Work Phone: [facility] Work Phone: Start: 04-15-2024 End: 04-15-2024 ambulatory REANNA Taylor APLING Not Available Start: 02-15-2024 End: 02-15-2024 ambulatory GREGORIO KINSEY Not Available Start: 12-21-2023 End: 12-21-[address] [facility] Work Phone: Start: 12-21-2023 End: 12-21-2023 Patient encounter procedure [facility] Work Phone: Start: 12-07-2023 End: 12-07-2023 ambulatory GREGORIO KINSEY Not Available Start: 11-06-2023 Non-patient / Non-visit [facility] Work Phone: Start: 10-09-2023 End: 10-09-2023 ambulatory Nixno Ball Other [employer] Other Start: 10-09-2023 Telephone encounter Nixon Villagomez [facility] Start: 09-25-2023 End: 09-25-2023 ambulatory GREGORIO KINSEY Not Available Start: 09-01-2023 End: 09-01-2023 ambulatory Nixon Ball Other [employer] Other Start: 09-01-2023 Telephone encounter Nixon Ball [facility] Start: 08-31-2023 End: 08-31-2023 ambulatory Nixon Ball Facility:[facility] Start: 08-21-2023 End: 08-21-2023 ambulatory Nixon Ball Other [employer] Other Start: 08-21-2023 Telephone encounter Nixon Ball [facility] Start: 08-10-2023 End: 08-10-2023 ambulatory Nixon Ball Other [employer] Other Start: 08-10-2023 Patient encounter procedure Nixon Ball [facility] Start: 06-06-2023 End: 06-06-2023 ambulatory Nixon Ball Other [employer] Other Start: 06-06-2023 Telephone encounter Nixon Ball [facility] Start: 06-05-2023 End: 06-05-2023 ambulatory Nixon Ball Other [employer] Other Start: 06-05-2023 Telephone encounter Nixon Ball [facility] Start: 06-01-2023 End: 06-01-2023 ambulatory Nixon Ball Other [employer] Other Start: 06-01-2023 Telephone encounter Nixon Ball [facility] Start: 05-23-2023 End: 05-23-2023 ambulatory Nixon Ball Other [employer] Other Start: 05-23-2023 Telephone encounter Nixon Ball [facility] Start: 05-16-2023 End: 05-16-2023 ambulatory Nixon Ball Other [employer] Other Start: 05-16-2023 Telephone encounter Nixon Ball [facility] Start: 04-27-2023 End: 04-27-2023 ambulatory Nixon Ball Other [employer] Other Start: 04-27-2023 Office outpatient vi sit 25 minutes Nixon Ball [facility] Start: 02-08-2023 End: 02-08-2023 ambulatory Nixon Ball Other [employer] Other Start: 02-08-2023 Telephone encounter Nixon Ball [facility] Start: 02-07-2023 End: 02-07-2023 ambulatory DO Nixon Ball Work Phone: [facility] Work Phone: Start: 02-07-2023 End: 02-07-2023 Patient encounter procedure DO Nixon Ball Work Phone: [facility] Work Phone: Start: 01-11-2023 End: 01-11-2023 ambulatory Nixon Ball Other [employer] Other Start: 01-11-2023 Telephone encounter Nixon Ball [facility] Start: 01-10-2023 End: 01-10-2023 ambulatory Nixon Ball Other [employer] Other Start: 01-10-2023 Office outpatient vi sit 25 minutes Nixon Ball [facility] Start: 12-13-2022 End: 12-13-2022 ambulatory Nixon Ball Other [employer] Other Start: 12-13-2022 Telephone encounter [facility] Start: 10-18-2022 End: 10-18-2022 ambulatory Nixon Villagomez Other [employer] Other Start: 10-18-2022 Telephone encounter Nixon [facility] Start: 10-14-2022 End: 10-15-[address] NIXON VILLAGOMEZ Facility: Start: 10-13-2022 End: 10-13-2022 ambulatory Nixon Hernando Other [employer] Other Start: 10-13-2022 Patient encounter procedure Nixon [facility] Start: 03-24-2022 End: 03-24-2022 Patient encounter procedure DO Nixon Villagomez Work Phone: [facility] Start: 01-27-2022 End: 01-27-2022 Patient encounter procedure DO Nixon Villagomez Work Phone: [facility] Start: 01-13-2022 End: 01-13-2022 Patient encounter procedure DO Nixon Villagomez Work Phone: [facility] [address] Procedures Date Procedure Procedure Detail Performing Clinician Start: 05-21-2024 Basic metabolic panel calcium total Rick Thomas DO Work Phone: Start: 04-19-2024 Dual energy X-ray absorptiometry DO Nixon Ball Work Phone: Start: 04-19-2024 Screening mammography of bilateral breasts DO Nixon Ball Work Phone: Start: 02-07-2023 Screening mammography of bilateral breasts DO Nixon Ball Work Phone: Start: 03-24-2022 Dual energy X-ray absorptiometry DO Nixon Ball Work Phone: Start: 01-27-2022 Screening mammography of bilateral breasts DO Nixon Ball Work Phone: History of operative procedure on knee S/P arthroscopic partial medial meniscectomy of left knee Reanna Simmons [employer] DIRECTOR Work Phone: History of operative procedure on knee S/P arthroscopic partial medial meniscectomy of left knee Reanna Simmons NP Work Phone: History of operative procedure on knee S/P arthroscopic partial medial meniscectomy of left knee Reanna Simmons NP Work Phone: Plan of Treatment Date Care Activity Detail Author Start: 10-03-2024 End: 10-03-2024 Patient encounter procedure 10/03/2024 10:10 AM EST Procedure Visit [facility] [address] [place] [address] Gregorio Kinsey, DPMandi [address] [facility] [address] [place] [address] [facility] Start: 08-21-2024 End: 08-21-2024 Patient encounter procedure 08/21/2024 9:00 AM EST Office Visit [facility] [address] [place] [address] Reanna Simmons, MARQUIS [address] [place] [address] [facility] Start: 08-19-2024 End: 08-19-2024 Patient encounter procedure 08/19/2024 11:30 AM EST Office Visit [facility] [address] [place] [address] Reanna Simmons, MARQUIS [address] [place] [address] S/P arthroscopic partial medial meniscectomy of left knee (Primary Dx); Arthritis of left knee [facility] Comment on above: S/P arthroscopic par tial medial meniscectomy of left knee (Primary Dx); Arthritis of left knee Start: 07-25-2024 End: 07-25-2024 Patient encounter procedure [facility] Comment on above: Diabetes mellitus du e to underlying condition with diabetic polyneuropathy, with long-term current use of insulin ([facility]) (Primary Dx); Onychomycosis; Toe pain, left; Toe pain, right; Venous insufficiency Start: 07-18-2024 End: 07-18-2024 Patient encounter procedure 07/18/2024 9:20 AM EST Procedure Visit [facility] [address] [facility] [address] [place] [address] Gregorio Kinsey, DPMandi [address] [facility] [address] [place] [address] [facility] Start: 07-10-2024 End: 07-10-2024 Patient encounter procedure 07/10/2024 1:30 PM EST Office Visit [facility] [address] [facility] [address] [place] [address] Reanna Simmons, YOUTH PROGRAM DIRECTOR [address] [facility] [address] [place] [address] Arthritis of left knee (Primary Dx); S/P arthroscopic partial medial meniscectomy of left knee [facility] Comment on above: Arthritis of left kn ee (Primary Dx); S/P arthroscopic partial medial meniscectomy of left knee Start: 06-12-2024 End: 06-12-2024 Patient encounter procedure 06/12/2024 1:30 PM EDT Office Visit [facility] [address] [facility] [address] [place] [address] Reanna Simmons, YOUTH PROGRAM DIRECTOR [address] [facility] [address] [place] [address] Arthritis of left knee (Primary Dx); S/P arthroscopic partial medial meniscectomy of left knee [facility] Comment on above: Arthritis of left kn ee (Primary Dx); S/P arthroscopic partial medial meniscectomy of left knee Start: 06-12-2024 End: 06-12-2024 Patient encounter procedure 06/12/2024 10:15 AM EDT Office Visit [facility] [address] [facility] [address] [place] [address] Reanna Simmons, YOUTH PROGRAM DIRECTOR [address] [place] [address] [facility] Start: 06-05-2024 End: 06-05-2024 Patient encounter procedure 06/05/2024 7:30 AM EDT Procedure Visit [facility] Rick Thomas DO [address] [place] [address] [facility] Start: 05-14-2024 End: 05-14-2024 [facility] Comment on above: Left knee pain, unsp ecified chronicity (Primary Dx); Complex tear of medial meniscus of left knee as current injury, initial encounter; Primary osteoarthritis of left knee Start: 05-13-2024 End: 05-13-2024 Professional / ancillary services management 05/13/2024 10:30 AM EDT Ancillary Procedure [facility] [address] [place] [address] [facility] Start: 05-09-2024 End: 05-09-2024 Patient encounter procedure [facility] Comment on above: Diabetes mellitus du e to underlying condition with diabetic polyneuropathy, with long-term current use of insulin ([facility]) (Primary Dx); Onychomycosis; Toe pain, left; Toe pain, right; Venous insufficiency Start: 05-08-2024 End: 05-08-2024 Patient encounter procedure 05/08/2024 1:30 PM EDT [facility] [address] [place] [address] Reanna Simmons, YOUTH PROGRAM DIRECTOR [address] [place] [address] [facility] Start: 05-05-2024 Influenza vaccination Influenza Vacc ine (#1) [facility] Start: 04-30-2024 End: 04-30-2025 MR Knee - left WO contrast MR knee left wo IV contrast Imaging Routine Internal derangement of left knee Expected: 04/30/2024 (Approximate), Expires: 04/30/2025 [facility] Work Phone: Comment on above: Expected: 04/30/2024 (Approximate), Expires: 04/30/2025 [facility] Immunizations Immunization Date Immunization Notes Care Provider Maddi hoffman 04-27-2023 Prevnar 20 Nixon Villagomez Other [facility] 07-27-2022 influenza virus vaccine, split virus (incl. purified surface antigen) Nixon Villagomez Other [facility] [employer] Other 07-27-2022 influenza virus vaccine, unspecified formulation [facility] 06-28-2021 COVID-19 Vaccine Pfi zer - Documentation Purposes Only Nixon Villagomez Other [facility] 10-27-2020 COVID-19 Vaccine Pfi zer - Documentation Purposes Only Nixon Villagomez Other [facility] 10-06-2020 COVID-19 Vaccine Pfi zer - Documentation Purposes Only Nixon Villagomez Other [facility] 02-06-2018 diphtheria, tetanus toxoids and acellular pertussis vaccine, unspecified formulation Nixon Villagomez Other [facility] Payers Date Payer Category Payer Private Health Insurance [id number] 2023 Self-pay [id number] 2022 Private Health Insurance [facility] [id number] 2012 Medicare [id number] 1959 Medicare [id number] 1959 Private Health Insurance [facility] [id number] 1947 Unknown [id number] 2..[id number] 1947 Unknown [id number] 2..840.1.757591.3.579.2.1285 1947 Unknown [id number] 2.840.1.526470.3.579.2.1285 1947 Unknown [id number] 2.840.1.422496.3.579.2.1285 1947 Unknown [id number] 2.840.1.218223.3.579.2.1285 1947 Unknown [id number] 2.840.1.197995.3.579.2.1285 1947 Unknown [id number] 2.840.1.672205.3.579.2.1285 1947 Unknown [id number] 2.840.1.652349.3.579.2.1258 1947 Unknown [id number] 2.840.1.013983.3.579.2.1258 1947 Unknown [id number] .840.1.388364.3.579.2.1258 1947 Unknown [id number] 2.840.1.121100.3.579.2.1258 1947 Unknown [id number] 2.840.1.475395.3.579.2.1258 1947 Unknown [id number] 2.840.1.037707.3.579.2.1258 1947 Unknown [id number] 2.840.1.505609.3.579.2.1258 1947 Unknown [id number] 2.16.840.1.322103.3.579.2.1259 1947 Unknown [id number] 2.16.840.1.469293.3.579.2.1258 1947 Unknown [id number] 2.16.840.1.934899.3.579.2.1258 1947 Unknown [id number] 2.16.840.1.992130.3.579.2.1258 1947 Unknown [id number] 2.16.840.1.397514.3.579.2.1258 1947 Unknown [id number] 2.16.840.1.602056.3.579.2.1259 Unknown Regular Insurance [id number] Unknown [id number] 2.16.840.1.736533.3.579.2.531 Unknown [id number] 2.16.840.1.558790.3.579.2.531 Social History Date Type Detail Facility Tobacco smoking status IAIS Unknown if ever smoked [facility] Work Phone: Start: 1945 Sex Assigned At Female [facility] Start: 04-15-2024 End: 05-09-2024 Sex Assigned At [employer] Other Start: 02-02-2023 End: 05-27-2024 Tobacco smoking status NHIS Never smoked tobacco (finding) [facility] Start: 02-02-2023 Tobacco use and exposure Smokeless tobacco non-user [facility] Start: 05-09-2024 End: 05-10-2024 Alcoholic beverage intake Ex-drinker (finding) [facility] Start: 04-15-2024 End: 05-09-2024 History of Social function [facility] Start: 04-27-2023 Alcohol Comment caffeine intak e: 1-2 cups per day [facility] Start: 1945 Sex assigned at Not on file [facility] NEGATED: Highlighted rowStart: NINF History of tobacco use Passive smoker [facility] Medical Equipment Procedure Code Equipment Code Equipment Origin al Text Equipment Identifier Dates Start: 03-19-2024 Blood Sugar Diagnostic (Contour Next Test Strips) strip Start: 03-19-2024 Lancets (Microle t Lancet) misc Start: 03-19-2024 Blood Sugar Diagnostic (Contour Next Test Strips) strip Start: 03-18-2024 End: 03-19-2024 Blood Sugar Diagnostic (Contour Next Test Strips) strip Start: 03-19-2024 End: 03-19-2024 Lancets (Microle t Lancet) misc Start: 03-18-2024 End: 03-19-2024 Lancets (Microle t Lancet) misc Start: 03-19-2024 End: 03-19-2024 Blood Sugar Diagnostic (Contour Next Test Strips) strip Start: 03-19-2024 Lancets (Microle t Lancet) misc Start: 03-19-2024 Blood Sugar Diagnostic (Contour Next Test Strips) strip Start: 03-18-2024 End: 03-19-2024 Blood Sugar Diagnostic (Contour Next Test Strips) strip Start: 03-19-2024 End: 03-19-2024 Lancets (Microle t Lancet) misc Start: 03-18-2024 End: 03-19-2024 Lancets (Microle t Lancet) misc Start: 03-19-2024 End: 03-19-2024 Blood Sugar Diagnostic (Contour Next Test Strips) strip Start: 03-19-2024 Lancets (Microle t Lancet) misc Start: 03-19-2024 Blood Sugar Diagnostic (Contour Next Test Strips) strip Start: 03-18-2024 End: 03-19-2024 Blood Sugar Diagnostic (Contour Next Test Strips) strip Start: 03-19-2024 End: 03-19-2024 Lancets (Microle t Lancet) misc Start: 03-18-2024 End: 03-19-2024 Lancets (Microle t Lancet) misc Start: 03-19-2024 End: 03-19-2024 Clinical Notes 10-13-2022 to 07-25-2024 Gregorio Kinsey DPM - 07/25/2024 9:20 AM Ofelia Simmons NP - 07/10/2024 1:30 PM Ofelia Simmons, MARQUIS - 06/12/2024 10:15 AM EDTTelephone Encounter - Valerie Avalos, ARRT - 06/07/2024 12:34 PM EDT Note Date & Type Note Facility 07-25-2024 History of Presen t illness Narrative Patient: Sarai Alcazar : 1945 PCP: Nixon Villagomez MD SUBJECTIVE Patient presents today with a CC of elongated, thick nails. Pt states nails have been elongated and thick for many years and cause pain with ambulation in shoegear. Pt has tried previous treatment with minimal relief. Pt presents today for nail care and treatment. Patient is DM2 Patient has positive history of venous stasis Allergies: Allergies Allergen Reactions Boniva [Ibandronic Acid] Muscle pain Past Medical History: Past Medical History: Diagnosis Date Callus Diabetes mellitus (CMS/HCC) Type 2 Difficulty walking GERD (gastroesophageal reflux disease) History of endoscopy 2000 History of total abdominal hysterectomy and bilateral salpingo-oophorectomy 1987 Hyperlipidemia (CMS/HCC) Hypertension (CMS/HCC) Macular hole, left eye 2008 Onychomycosis Osteoarthritis Osteoporosis (CMS/HCC) Personal history of other medical treatment T&A x2- full term, 1 twin Shingles Tinea pedis Medications: Current Outpatient Medications: calcium carbonate 1500 (600 Ca) MG tablet, Take 1,500 mg by mouth every 12 (twelve) hours., Disp: , Rfl: Calcium-Vitamin D-Vitamin K 500-1000-40 MG-UNT-MCG chewable tablet, 1 tablet, Disp: , Rfl: glyBURIDE (Diabeta) 1.25 MG tablet, Take 1.25 mg by mouth in the morning. Take with meals., Disp: , Rfl: losartan (Cozaar) 25 MG tablet, TAKE 1 TABLET BY MOUTH EVERY DAY FOR 30 DAYS, Disp: , Rfl: Microlet Lancets misc, USE TO TEST BLOOD SUGAR ONCE A DAY *E11.65*, Disp: , Rfl: omeprazole (PriLOSEC) [address] capsule, Take 40 mg by mouth Daily as needed, Disp: , Rfl: Social History: Social History Socioeconomic History Marital status: Spouse name: Not on file Number of children: Not on file Years of education: Not on file Highest education level: Not on file Occupational History Not on file Tobacco Use Smoking status: Never Passive exposure: Never Smokeless tobacco: Never Vaping Use Vaping status: Never Used Substance and Sexual Activity Alcohol use: Not Currently Comment: caffeine intake: 1-2 cups per day Drug use: Never Sexual activity: Defer Partners: Decline to Answer Other Topics Concern Not on file Social History Narrative Not on file Social Drivers of Health Financial Resource Strain: Not on file Food Insecurity: Not on file Transportation Needs: Not on file Physical Activity: Not on file Stress: Not on file Social Connections: Not on file Intimate Partner Violence: Not on file Housing Stability: Not on file ROS: General: denies fever, chills, fatigue, malaise Cardiovascular: denies CP, palpitations, irregular rhythms OBJECTIVE LE EXAM: DERM: Elongated thick yellow crumbly nails digits 1 through 10. Negative hair growth with thin shiny atrophic skin bilaterally. +1 pitting edema to the left ankle and right ankle VASC: positive DP and negative PT pedal pulses NEURO: 5.07 [place] Vladimir monofilament test intact to digits and forefoot bilaterally 125Hz tuning fork diminished to 1st MPJ bilaterally ORTHO: Positive pain on palpation to nails 1 through 10 Negative palpation left calf with negative Homans ASSESSMENT 1. Diabetes mellitus due to underlying condition with diabetic polyneuropathy, with long-term current use of insulin ([facility]) 2. Onychomycosis 3. Toe pain, left 4. Toe pain, right 5. Venous insufficiency PLAN Continuous foot elevation as well as [id number] compression stockings Discussed proper foot care with patient today. Debride nails in length and thickness digits 1 through 10 Gregorio Kinsey DPM documented in this encounter [facility] 07-10-2024 History of Presen t illness Narrative Images from the original note were not included. Subjective Patient ID: Sarai Alcazar is a 79 y.o. female. 5 weeks s/p partial medial menisectomy LT Knee, medial and PFJ arthritis (DOS 06/05/24) With certain movements she gets a dull ache anterior knee at times. Admits stiffness going from sit to stand when she first stands up, worse if she sits for long periods of time. Denies pain meds, denies ice, heat or creams. Denies pain, just ache. Denies waking at night. Denies N/T. Denies swelling She notes she is pleased with her outcome. Objective Ortho Exam Knee Musculoskeletal Exam Inspection Left Erythema: none Edema: none Ecchymosis: none Previous incision: arthroscopic portals Incision: well-healed Inspection additional comments: Nv intact, negative homans sign, no signs of infection, +1 pitting edema in the lower leg Assessment/Plan Encounter Diagnoses: ICD-10-CM 1. Arthritis of left knee M17.12 2. S/P arthroscopic partial medial meniscectomy of left knee Z98.890 Z87.828 Discussion of therapy and she will think about it, she notes she will begin wearing compression stockings, f/U in 6-8 weeks documented in this encounter [facility] 06-12-2024 History of Presen t illness Narrative Images from the original note were not included. Subjective Patient ID: Sarai Alcazar is a 79 y.o. female. 1 week s/p partial medial menisectomy LT Knee, medial and PFJ arthritis (DOS 06/05/24) sutures intact. Removed today. Steri strips applied. Denies issues with incisions. Denies drainage/fevers/chills. Admits soreness. Admits ice. Admits swelling. Admits constant dull ache. Denies pain, just ache. Denies waking at night. Denies N/T. Admits TYL prn. Objective Ortho Exam Knee Musculoskeletal Exam Inspection Left Erythema: none Edema: mild Ecchymosis: none Previous incision: arthroscopic portals Incision: clean and dry Inspection additional comments: Nv intact, negative homans sign, no signs of infection, sutures removed in office, steri strips applied Assessment/Plan Encounter Diagnoses: ICD-10-CM 1. Arthritis of left knee M17.12 medial and PFJ 2. S/P arthroscopic partial medial meniscectomy of left knee Z98.890 Z87.828 There were no pictures available to go over from surgery. We discussed the intraoperative findings, post op treatment plan, and future expectations. f/u in 4 weeks documented in this encounter [facility] 06-07-2024 Telephone encounter Note Spoke with patient and answered question, reviewed post op care/restrictions. Doing very well, taking Tylenol BID, please with outcome [facility] Work Phone: 06-07-2024 Miscellaneous Notes Spoke with patient and answered question, reviewed post op care/restrictions. Doing very well, taking Tylenol BID, please with outcome Tried to call patient multiple times but went to voicemail, spoke with daughter and went over post op care and answered questions Pt called with post-op questions about dressing ect...had knee scope 06/05 documented in this encounter [facility] 06-06-2024 Telephone encounter Note Tried to call patient multiple times but went to voicemail, spoke with daughter and went over post op care and answered questions [facility] 06-06-2024 Telephone encounter Note Pt called with post-op questions about dressing ect...had knee scope 06/05 [facility] 06-05-2024 History of Presen t illness Narrative Images from the original note were not included. Subjective Patient ID: Sarai Alcazar is a 79 y.o. female. 10 weeks and 5 days s/p partial medial menisectomy LT Knee, medial and PFJ arthritis (DOS 06/05/24) Admits stiffness going from sit to stand when she first stands up, worse if she sits for long periods of time. Denies pain meds, denies ice, heat or creams. Denies pain, just ache. Denies waking at night. Denies N/T. Denies any more swelling than usual. She notes she is pleased with her outcome. Objective Ortho Exam Knee Musculoskeletal Exam Inspection Left Erythema: none Effusion: mild Edema: none Ecchymosis: none Previous incision: arthroscopic portals Incision: well-healed Inspection additional comments: Nv intact, negative homans sign, no signs of infection, 0-110 no pain with ROM Assessment/Plan Encounter Diagnoses: ICD-10-CM 1. S/P arthroscopic partial medial meniscectomy of left knee Z98.890 Ambulatory referral to Physical Therapy Z87.828 2. Arthritis of left knee M17.12 Ambulatory referral to Physical Therapy Will send to therapy at [facility], f/U in 3-4 weeks and may consider an injection, she may continue with activities as tolerated documented in this encounter [facility] 06-04-2024 Telephone encounter Note Post op pain rx. PDMP reviewed [facility] 06-04-2024 Miscellaneous Notes Post op pain rx. PDMP reviewed documented in this encounter [facility] 05-14-2024 History of Presen t illness Narrative Images from the original note were not included. HISTORY OF PRESENT ILLNESS: Sarai Alcazar is an 79 y.o. @ female. Chief complaint LT knee LT knee: here for MRI results 05/13 [facility] 3 weeks s/p depo injx 04/22, no relief She notes 4 1/2 weeks ago (04/12/24) she was playing cards and she went to get up and had pain, her knee began to bother her. No specific injury. She notes her knees are lumpy . Pain is anterior medial. Aching at rest. Increased pain with WB, can be sharp. Pain at worst 7/10 with prolonged standing. Has been taking diclofenac BID and using lidocaine patches with some relief. Admits swelling since 04/12/24. She notes the knee gave out once going down the steps, can hardly go down the steps. Denies locking/catching. Admits limping. Denies pain at HS. Nothing she has tried is helping her pain. She used to see Dr. Chen and was prescribed diclofenac 75 mg. No longer taking due to no relief. She had seen him for her right hand in the past. TX: heat, TYL, diclofenac oral, XR [facility] 04/15/24, lidocaine patches, XR [facility] 04/15/24, depo injx 04/22/24, MRI [facility] 05/13/24 MEDICATION: Current Outpatient Medications on File Prior to Visit Medication Sig Dispense Refill Calcium-Vitamin D-Vitamin K 500-1000-40 MG-UNT-MCG chewable tablet 1 tablet calcium carbonate 1500 (600 Ca) MG tablet Take 1,500 mg by mouth every 12 (twelve) hours. glyBURIDE (Diabeta) 1.25 MG tablet Take 1.25 mg by mouth in the morning. Take with meals. losartan (Cozaar) 25 MG tablet TAKE 1 TABLET BY MOUTH EVERY DAY FOR 30 DAYS Microlet Lancets misc USE TO TEST BLOOD SUGAR ONCE A DAY *E11.65* omeprazole (PriLOSEC) [address] capsule Take 40 mg by mouth Daily as needed [DISCONTINUED] diclofenac (Voltaren) 75 MG EC tablet Take 1 tablet (75 mg) by mouth in the morning and 1 tablet (75 mg) before bedtime. Do not crush, chew, or split.. 60 tablet 2 No current facility-administered medications on file prior to visit. MEDICAL HISTORY: Past Medical History: Diagnosis Date Callus Diabetes mellitus (CMS/HCC) Type 2 Difficulty walking GERD (gastroesophageal reflux disease) History of endoscopy 2000 History of total abdominal hysterectomy and bilateral salpingo-oophorectomy 1987 Hyperlipidemia (CMS/HCC) Hypertension (CMS/HCC) Macular hole, left eye 2008 Onychomycosis Osteoarthritis Osteoporosis (CMS/HCC) Personal history of other medical treatment T&A x2- full term, 1 twin Shingles Tinea pedis ALLERGIES: Allergies Allergen Reactions Boniva [Ibandronic Acid] Muscle pain VITALS: Visit Vitals Ht 5' 0.5 Wt 137 lb BMI 26.32 kg/m Smoking Status Never BSA 1.63 m Review of Systems General: Fatigue denies. Fever denies. Night sweats denies. ENT: Decreased hearing denies. Respiratory: Cough denies. Shortness of breath denies. Cardiovascular: Chest pain denies. Cyanosis denies. Irregular heartbeat denies. Gastrointestinal: Comments denies incontinence of stool . Nausea denies. Hematology: Bleeding problems denies. Genitourinary: Comments denies dribbling. Incontinence denies. Musculoskeletal: CommentsSee [facility] for details. Skin: Rash denies. Neurologic: Dizziness denies. Headache denies. Examination General Examination: GENERAL EXAMINATION in no acute distress, well developed, well nourished . HEART: no jugular venous distention . LUNGS: regular unlabored, normal effort . NEUROLOGIC: alert and oriented . PSYCH: oriented to person, place, time and situation . PHYSICAL EXAM: Ortho Exam LEFT KNEE ROM 20-90 Medial joint line tenderness Positive medial impingement Crepitus Limping IMAGING: April 15, 2024 x-rays from the [place] office AP weight-bearing bilateral knees and lateral of the left knee demonstrate subchondral sclerosis under the patella. There is slight narrowing of the medial compartment with neutral alignment of the left knee. No fractures noted. Impression: Findings suggestive osteoarthritis of the patellofemoral joint Chris Thomas I reviewed an MRI of the left knee from the [facility] dated May 13, 2024. There is a complex tear of the posterior horn and body of the medial meniscus with extrusion. There is subchondral edema in the medial femoral condyle. There is loss of articular cartilage along the medial compartment. The cruciate ligaments are intact. I believe the edema noted on MRI is due to stress reaction associated with arthritis and meniscus pathology and I do not believe that this represents a true stress fracture ASSESSMENT: ICD-10-CM 1. Left knee pain, unspecified chronicity M25.562 2. Complex tear of medial meniscus of left knee as current injury, initial encounter S83.232A 3. Primary osteoarthritis of left knee M17.12 PLAN: I discussed options of surgical and non surgical treatment. Risks/benefits of each and chances for success/ failure. Discussion included but was not limited to the risk of infection, blood clot, failure to improve and need for additional surgery. The patient was advised that surgery is not likely to make them pain free. I answered all of the patients questions. If symptoms are coming from the meniscus then surgery is likely to improve the pain but if the symptoms are coming from the arthritis then arthroscopy is not likely to improve the situation. I recommend a LT knee arthroscopy. The patient was instructed to garett the operative site with the word Yes prior to arriving at the hospital and the patient verbalized an understanding. The patient wants to proceed and informed consent is obtained. Dr. Thomas obtained history and examined the patient, I am acting as scribe for Dr. Thomas/ignacio Thomas D.O. documented in this encounter [facility] 05-09-2024 History of Presen t illness Narrative Patient: Sarai Alcazar : 1945 PCP: Nixon Villagomez MD SUBJECTIVE Patient presents today with a CC of elongated, thick nails. Pt states nails have been elongated and thick for many years and cause pain with ambulation in shoegear. Pt has tried previous treatment with minimal relief. Pt presents today for nail care and treatment. Patient is DM2 Patient has positive history of venous stasis Allergies: Allergies Allergen Reactions Boniva [Ibandronic Acid] Muscle pain Past Medical History: Past Medical History: Diagnosis Date Callus Diabetes mellitus (CMS/HCC) Type 2 Difficulty walking History of endoscopy 2000 History of total abdominal hysterectomy and bilateral salpingo-oophorectomy 1988 Macular hole, left eye 2009 Onychomycosis Osteoarthritis Personal history of other medical treatment T&A x2- full term, 1 twin Shingles Tinea pedis Medications: Current Outpatient Medications: calcium carbonate 1500 (600 Ca) MG tablet, Take 1,500 mg by mouth every 12 (twelve) hours., Disp: , Rfl: diclofenac (Voltaren) 75 MG EC tablet, Take 1 tablet (75 mg) by mouth in the morning and 1 tablet (75 mg) before bedtime. Do not crush, chew, or split.., Disp: 60 tablet, Rfl: 2 glyBURIDE (Diabeta) 1.25 MG tablet, Take 1.25 mg by mouth in the morning. Take with meals., Disp: , Rfl: losartan (Cozaar) 25 MG tablet, TAKE 1 TABLET BY MOUTH EVERY DAY FOR 30 DAYS, Disp: , Rfl: Microlet Lancets misc, USE TO TEST BLOOD SUGAR ONCE A DAY *E11.65*, Disp: , Rfl: omeprazole (PriLOSEC) [address] capsule, Take 40 mg by mouth Daily as needed, Disp: , Rfl: Social History: Social History Socioeconomic History Marital status: Spouse name: Not on file Number of children: Not on file Years of education: Not on file Highest education level: Not on file Occupational History Not on file Tobacco Use Smoking status: Never Passive exposure: Never Smokeless tobacco: Never Vaping Use Vaping status: Never Used Substance and Sexual Activity Alcohol use: Not Currently Comment: caffeine intake: 1-2 cups per day Drug use: Never Sexual activity: Defer Partners: Decline to Answer Other Topics Concern Not on file Social History Narrative Not on file Social Determinants of Health Financial Resource Strain: Not on file Food Insecurity: Not on file Transportation Needs: Not on file Physical Activity: Not on file Stress: Not on file Social Connections: Not on file Intimate Partner Violence: Not on file Housing Stability: Not on file ROS: General: denies fever, chills, fatigue, malaise Cardiovascular: denies CP, palpitations, irregular rhythms OBJECTIVE LE EXAM: DERM: Elongated thick yellow crumbly nails digits 1 through 10. Negative hair growth with thin shiny atrophic skin bilaterally. +1 pitting edema to the left ankle and right ankle VASC: positive DP and negative PT pedal pulses NEURO: 5.07 [place] Vladimir monofilament test intact to digits and forefoot bilaterally 125Hz tuning fork diminished to 1st MPJ bilaterally ORTHO: Positive pain on palpation to nails 1 through 10 Negative palpation left calf with negative Homans ASSESSMENT 1. Diabetes mellitus due to underlying condition with diabetic polyneuropathy, with long-term current use of insulin ([facility]) 2. Onychomycosis 3. Toe pain, left 4. Toe pain, right 5. Venous insufficiency PLAN Continuous foot elevation as well as [id number] compression stockings Discussed proper foot care with patient today. Debride nails in length and thickness digits 1 through 10 Gregorio Kinsey DPM documented in this encounter [facility] 04-30-2024 Telephone encounter Note Pt stated she would like to get MRI done , if order can be sent to [facility] imaging. [facility] 04-30-2024 Miscellaneous Notes Pt stated she would like to get MRI done , if order can be sent to [facility] [employer] Alert. documented in this encounter [facility] 08-10-2023 Evaluation note Encounter Date Diagnosis Assessment Notes Aug, Medicare annual wellness visit, subsequent (ICD-10 - Z00.00) Personalized health advice was given to the beneficiary including a written plan for screenings discussed and provided. Advanced care planning reviewed and/or information given as requested. Additional counseling was provided here today in regards to, [ ]. The above visit was performed by [ ], under direct supervision of [ ]. Document reviewed and amended by provider signed below. Aug, Primary hypertension (ICD-10 - I10) This patient is instructed to consume a healthy, low-fat, low-salt diet. They are also encouraged to continue exercise to achieve/maintain a normal BMI. Aug, Type 2 diabetes mellitus with hyperglycemia, without long-term current use of insulin (ICD-10 - E11.65) This patient is following a comprehensive diabetic treatment plan. They are checking their feet daily for calluses and nonhealing ulcers. They are being seen for yearly dilated eye examinations. Goals: SBP less than 130, LDL less than 100, FBS less than 140, A1C less than 7%. They are checking their BS daily, will which are reviewed at the office visit. Continue regular routine monitoring of A1C,] Microalbumin, Dilated eye exam and Foot exam Aug, Mixed hyperlipidemia (ICD-10 - E78.2) Instructed on diet and exercise with continued statin therapy.Discussed the beneficial effects of lowering cholesterol in reducing the risk for cerebrovascular and cardiovascular disease. Aug, Age-related osteoporosis without current pathological fracture (ICD-10 - M81.0) Ca and Vit D supplements Weight bearing exercises DEXA qoy Aug, Screening mammogram for breast cancer (ICD-10 - Z12.31) Instructed patient on monthly SBE and yearly mammograms. Aug, Gastroesophageal reflux disease with esophagitis without hemorrhage (ICD-10 - K21.00) Diet instructions: Smaller portions, avoid eating and laying flat, avoid eating or drinking prior to bedtime. Weight loss. Restart PPI x 2 months No improvement, refer to GI for EGD Aug, Menopause (ICD-10 - Z78.0) Healthy diet and exercise. [employer] Other 10-03-2023 Evaluation note* Encounter Date Diagnosis Assessment Notes Treatment Notes Treatment Clinical Notes Jun, Primary hypertension (ICD-10 - I10) [employer] Other 08-24-2023 Evaluation note* Encounter Date Diagnosis Assessment Notes Treatment Notes Treatment Clinical Notes Apr, Type 2 diabetes mellitus with hyperglycemia, without long-term current use of insulin (ICD-10 - E11.65) This patient is following a comprehensive diabetic treatment plan. They are checking their feet daily for calluses and nonhealing ulcers. They are being seen for yearly dilated eye examinations. Goals: SBP less than 130, LDL less than 100, FBS less than 140, AC and A1C less than 7%. They are checking their BS daily, will which are reviewed at the office visit. Continue regular routine monitoring of A1C,] Microalbumin, Dilated eye exam and Foot exam Taking 1/2 tab of BURK before evening meal instead of bid. Await A1C results, may need to take bid. Apr, Mixed hyperlipidemia (ICD-10 - E78.2) Instructed on diet and exercise with continued statin therapy.Discussed the beneficial effects of lowering cholesterol in reducing the risk for cerebrovascular and cardiovascular disease. Apr, Strain of neck muscle, initial encounter (ICD-10 - S16.1XXA) ROM exercises, heat/ice and Tylenol. Would suggest taking Mobic for several days for added pain relief. Monitor for radicular symptoms and call if develops. PT if no improvement Apr, Elevated BP without diagnosis of hypertension (ICD-10 - R03.0) Patient is instructed on home BP measurements: - rest for 5 minutes w/o talking- positioned w/ feet on floor and arm supported- average best 2/3 readings w/ goal < 135/85 This patient is instructed to consume a healthy, low-fat, low-salt diet. They are also encouraged to continue exercise to achieve/maintain a normal BMI. Apr, Overweight (ICD-10 - E66.3) This patient has been instructed on a low-fat, high-fiber diet. They are instructed to reduce calories, portion sizes and snacks. It is recommended that they exercise for 30 minutes, 3-5 times weekly. Apr, Age-related osteoporosis without current pathological fracture (ICD-10 - M81.0) Ca and Vit D supplements. weight bearing exercises. DEXA qoy Apr, Inflammatory polyarthritis (ICD-10 - M06.4) Stable w/o daily symptoms. No inflammatory changes: negative for swelling or erythema Mobic as needed Apr, History of nephrolithiasis (ICD-10 - Z87.442) No s/s recurrence. Push fluids [employer] Other 05-10-2023 Evaluation note* Encounter Date Diagnosis Assessment Notes Treatment Notes Treatment Clinical Notes January, Type 2 diabetes mellitus with hyperglycemia, without long-term current use of insulin (ICD-10 - E11.65) [employer] Other 05-09-2023 Evaluation note* Encounter Date Diagnosis Assessment Notes Treatment Notes Treatment Clinical Notes January, Type 2 diabetes mellitus with hyperglycemia, without long-term current use of insulin (ICD-10 - E11.65) This patient is following a comprehensive diabetic treatment plan. They are checking their feet daily for calluses and nonhealing ulcers. They are being seen for yearly dilated eye examinations. Goals: SBP less than 130, LDL less than 100, FBS less than 140, AC and A1C less than 7%. They are checking their BS daily, will which are reviewed at the office visit. January, Elevated BP without diagnosis of hypertension (ICD-10 - R03.0) This patient is instructed to consume a healthy, low-fat, low-salt diet. They are also encouraged to continue exercise to achieve/maintain a normal BMI. Patient is instructed on home BP measurements: - rest for 5 minutes w/o talking- positioned w/ feet on floor and arm supported- average best 2/3 readings w/ goal < 135-85 January, Mixed hyperlipidemia (ICD-10 - E78.2) Instructed on diet and exercise with continued statin therapy.Discussed the beneficial effects of lowering cholesterol in reducing the risk for cerebrovascular and cardiovascular disease. Discussed initiating statin for primary prevention measures per diabetic guidelines but holding for now. January, Overweight (ICD-10 - E66.3) This patient has been instructed on a low-fat, high-fiber diet. They are instructed to reduce calories, portion sizes and snacks. It is recommended that they exercise for 30 minutes, 3-5 times weekly. January, Inflammatory polyarthritis (ICD-10 - M06.4) In remission, off all medications Occasionally will take Mobic for acute flare of pain. Instructed to take Mobic w/ food or Pepcid to prevent gastritis/bleeding January, Age-related osteoporosis without current pathological fracture (ICD-10 - M81.0) Ca, Vitamin D supplements, weight bearing exercises. January, Rosacea (ICD-10 - L71.9) Failed trial of [facility], deferred alternate treatment to Dermatology January, History of nephrolithiasis (ICD-10 - Z87.442) Push fluids. [employer] Other 04-11-2023 Evaluation note* Encounter Date Diagnosis Assessment Notes Treatment Notes Treatment Clinical Notes Dec, Rosacea (ICD-10 - L71.9) [employer] Other 02-14-2023 Evaluation note* Encounter Date Diagnosis Assessment Notes Treatment Notes Treatment Clinical Notes Oct, Controlled type 2 diabetes mellitus with hyperglycemia, without long-term current use of insulin (ICD-10 - E11.65) [employer] Other 02-09-2023 Evaluation note* Encounter Date Diagnosis Assessment Notes Treatment Notes Treatment Clinical Notes Oct, Medicare annual wellness visit, subsequent (ICD-10 - Z00.00) Personalized health advice was given to the beneficiary including a written plan for screenings discussed and provided. Advanced care planning reviewed and/or information given as requested. Additional counseling was provided here today in regards to, [ ]. The above visit was performed by [ ], under direct supervision of [ ]. Document reviewed and amended by provider signed below. Healthy diet and exercise. Reviewed age-appropriate preventive testing recommended. Oct, Controlled type 2 diabetes mellitus with hyperglycemia, without long-term current use of insulin (ICD-10 - E11.65) This patient is following a comprehensive diabetic treatment plan. They are checking their feet daily for calluses and nonhealing ulcers. They are being seen for yearly dilated eye examinations. Goals: SBP less than 130, LDL less than 100, FBS less than 140, AC and A1C less than 7%. They are checking their BS daily, will which are reviewed at the office visit. A1C: [ ] Microalbumin: [ ] Eye exam: [ ] Foot exam: [ ] Oct, Age-related osteoporosis without current pathological fracture (ICD-10 - M81.0) Calcium and vitamin D supplements. Weight bearing exercise. Discussed bisphosphonates, prolia Oct, Elevated cholesterol (ICD-10 - E78.00) Diet and exercise with continued statin therapy. Oct, Vitamin D deficiency (ICD-10 - E55.9) Oct, Screening mammogram for breast cancer (ICD-10 - Z12.31) Oct, High risk medication use (ICD-10 - Z79.899) Oct, Colon cancer screening (ICD-10 - Z12.11) [facility] Other Evaluation noteNo assessment information available [facility] Work Phone: Evaluation noteNo InformationNortGe[facility] Other Evaluation note* Diagnosis Onset Date Resolution Status Elevated cholesterol acute GERD (gastroesophageal reflux disease) acute Hypertension acute Osteoporosis acute Type 2 diabetes mellitus with hyperglycemia acute [facility] Work Phone: Evaluation note* Diagnosis Onset Date Resolution Status Elevated cholesterol acute GERD (gastroesophageal reflux disease) acute Hypertension acute Osteoporosis acute Overweight acute Type 2 diabetes mellitus with hyperglycemia acute [facility] Work Phone: Evaluation note* Diagnosis Onset Date Resolution Status Elevated cholesterol acute GERD (gastroesophageal reflux disease) acute Hypertension acute Osteoporosis acute Overweight acute Type 2 diabetes mellitus with hyperglycemia acute Elevated cholesterol acute GERD (gastroesophageal reflux disease) acute Hypertension acute Type 2 diabetes mellitus with hyperglycemia acute Preop exam for internal medicine noneactive [facility] Work Phone: Evaluation note* Diagnosis Post-op pain- Primary Other acute postoperative pain documented in this encounter [facility]Evaluation [facility]* Diagnosis Arthritis of left knee- Primary S/P arthroscopic partial medial meniscectomy of left knee documented in this encounter [facility]* Diagnosis Arthritis of left knee- Primary S/P arthroscopic partial medial meniscectomy of left knee documented in this encounter [facility]* Diagnosis Diabetes mellitus due to underlying condition with diabetic polyneuropathy, with long-term current use of insulin ([facility])- Primary Onychomycosis Dermatophytosis of nail Toe pain, left Pain in soft tissues of limb Toe pain, right Pain in soft tissues of limb Venous insufficiency Unspecified venous (peripheral) insufficiency documented in this encounter [facility] HealthcareEvaluation note* Diagnosis S/P arthroscopic partial medial meniscectomy of left knee- Primary Arthritis of left knee documented in this encounter [facility]* Diagnosis Internal derangement of left knee- Primary documented in this encounter [facility]* Diagnosis Diabetes mellitus due to underlying condition with diabetic polyneuropathy, with long-term current use of insulin ([facility])- Primary Onychomycosis Dermatophytosis of nail Toe pain, left Pain in soft tissues of limb Toe pain, right Pain in soft tissues of limb Venous insufficiency Unspecified venous (peripheral) insufficiency documented in this encounter [facility]* Diagnosis Left knee pain, unspecified chronicity- Primary Complex tear of medial meniscus of left knee as current injury, initial encounter Primary osteoarthritis of left knee documented in this encounter [facility] HealthcareHistory general Narrative - Reported* Type Description Date Medical History Controlled type 2 di abetes mellitus with hyperglycemia, without long-term current use of insulin Medical History Other chondrocalcinosis, right w rist Medical History Age-related osteopor osis without current pathological fracture Medical History Rosacea Medical History Nephrolithiasis Medical History Cervical spondylosis Surgical History VITRECTOMY RIGHT EYE 2014 Surgical History CATARCT OD 2016 Surgical History CATARACT OS 2009 Hospitalization History SEE SURGICAL HX [employer] Other Chief Complaint and Reason for Visit Chief Complaint See order Screening z78.0 n95.8 Chief Complaint Screening Chief Complaint Amb Documentation 4 month follow up Reason for Visit Elevated cholesterol GERD (gastroesophageal reflux disease) Hypertension Osteoporosis Type 2 diabetes mellitus with hyperglycemia Chief Complaint screening z78.0 Chief Complaint screening z78.0 4 month follow up Reason for Visit Elevated cholesterol GERD (gastroesophageal reflux disease) Hypertension Osteoporosis Overweight Type 2 diabetes mellitus with hyperglycemia Chief Complaint screening z78.0 4 month follow up pre surgical clearance Reason for Visit Elevated cholesterol GERD (gastroesophageal reflux disease) Hypertension Osteoporosis Overweight Type 2 diabetes mellitus with hyperglycemia Elevated cholesterol GERD (gastroesophageal reflux disease) Hypertension Type 2 diabetes mellitus with hyperglycemia Preop exam for internal medicine Advance Directives Advance Directive Response Recorded Date/ Time Advance Directives No September 07, 2017 9:10am Summary Purpose Family History Relationship Condition Age at Onset Recorded Date/T gary family member Unknown Reason for Referral Specialty Diagnoses / Procedures Referred By Contac t Referred To Contact Radiology Diagnoses Internal derangement of left knee Procedures MR knee left wo IV contrast Troy, Reanna Taylor [employer] PROGRAM DIRECT[employer] [address] [facility] [address] [place] [address] [address] [place] [address] Referral ID Status Reason Start Date Expiration Date V isits Requested Visits Authorized [id number] Authorized 04/30/2024 10/27/2024 1 1 Additional Source Comments Care Teams (unrecognized sec tion and content) Team Status: Active Member Role Status Dates Nixon Villagomez DO Primary Care Provider Active Team Status: Active Member Role Status Dates Nixon Villagomez DO Primary Care Provider Active Start: November 06, 2023 CHAIM Guallpa Attending Provider Active Start : November 06, 2023 Team Status: Inactive Member Role Status Dates Nixon Villagomez DO Primary Care Provide r, Attending Provider Active Start: December 21, 2023 End: December 21, 2023 Team Status: Inactive Member Role Status Dates Nixon Villagomez DO Primary Care Provider Active Laurel Jones DO Attending Provider Active Team Status: Inactive Member Role Status Dates Nixon Villagomez DO Primary Care Provider Active Referral Self Attending Provider Active Laurel Jones DO Referring Provider Active Team Status: Inactive Member Role Status Dates Nixon Villagomez DO Primary Care Provider Active Saman Chen MD Attending Provider Active Team Status: Inactive Member Role Status Dates Nixon Villagomez DO Primary Care Provider Active Referral Self Attending Provider Active Team Status: Active Member Role Status Dates Nixon Villagomez DO Primary Care Provide r, Attending Provider Active Start: April 18, 2024 Team Status: Inactive Member Role Status Dates Nixon Villagomez , DO Primary Care Provide r, Attending Provider Active Start: April 19, 2024 End: April 19, 2024 Team Status: Inactive Member Role Status Dates Nixon Villagomez DO Primary Care Provide r, Attending Provider Active Start: April 23, 2024 End: April 23, 2024 Team Status: Inactive Member Role Status Dates Nixon Villagomez DO Primary Care Provide r, Attending Provider Active Start: May 27, 2024 End: May 27, 2024 [employer] Relationship Specialty Start Date End Date Nixon Villagomez MD [address] [facility] [place] [address] PCP - General Internal Medicine 02/02/23 [employer] Expert [employer] Relationship Specialty Start Date End Date Nixon Villagomez MD [address] [place] [address] PCP - General Internal Medicine 02/02/23 Sales Expert [employer] Relationship Specialty Start Date End Date Nixon Villagomez MD [address] [place] [address] PCP - General Internal Medicine 02/02/23 Sales Expert [employer] Relationship Specialty Start Date End Date Nixon Villagomez MD [address] [place] [address] PCP - General Internal Medicine 02/02/23 Sales Expert [employer] Relationship Specialty Start Date End Date Nixon Villagomez MD [address] [place] [address] PCP - General Internal Medicine 02/02/23 Sales Expert [employer] Relationship Specialty Start Date End Date Nixon Villagomez MD [address] [facility] [place] [id number] PCP - General Internal Medicine 02/02/23 Sales Expert [employer] Relationship Specialty Start Date End Date Nixon Villagomez MD [address] [facility] [place] [id number] PCP - General Internal Medicine 02/02/23 Sales Expert Home [employer] Relationship Specialty Start Date End Date Nixon Villagomez MD [address] [facility] [place] [id number] PCP - General Internal Medicine 02/02/23 Sales Expert Home [employer] Relationship Specialty Start Date End Date Nixon Villagomez MD [address] [place] [address] PCP - General Internal Medicine 02/02/23 Sales Expert Home [employer] Relationship Specialty Start Date End Date Nixon Villagomez MD [address] [place] [address] PCP - General Internal Medicine 02/02/23 Goals (unrecognized section and content) Goals may be documented in a n alternate sectionNo InformationNo InformationNo InformationNo InformationNo InformationNo InformationNo InformationGoals may be documented in an alternate sectionNo InformationNo InformationNo InformationNo InformationNo InformationNo InformationNo InformationNo InformationNo InformationNo InformationNo InformationGoals may be documented in an alternate sectionGoals may be documented in an alternate sectionGoals may be documented in an alternate sectionGoals may be documented in an alternate section INFORMATION SOURCE (unrecogn ized section and content) DATE CREATED AUTHOR 10/17/2022 [facility] DATE CREATED AUTHOR AUTHOR'S ORGANIZ ATION 04/20/[address] [facility] DATE CREATED AUTHOR AUTHOR'S ORGANIZ ATION 06/06/2024 [facility] DATE CREATED AUTHOR AUTHOR'S ORGANIZ ATION 08/21/2024 [facility] EPIC REASON FOR VISIT (unrecogniz ed section and content) Reason Onset Date Comments Post-op Problem 06/06/2024 Reason Comments Post-op Reason Comments Toenail Care Non dm nail care Reason Comments Follow-up Reason Onset Date Comments MRI 04/30/2024 Reason Comments DM Foot Care Dm nail care Reason Comments Follow-up FOR RECORDS PERTAINING TO PATIENTS WHO ARE OR HAVE BEEN ENROLLED IN A CHEMICAL DEPENDENCY/SUBSTANCEABUSE PROGRAM, SOME INFORMATION MAY BE OMITTED. This clinical summary was aggregated from multiple sources. Caution should be exercised in using it in the provision of clinical care. This summary normalizes information from multiple sources, and as a consequence, information in this document may materially change the coding, format and clinical context of patient data. In addition, data may be omitted in some cases. CLINICAL DECISIONS SHOULD BE BASED ON THE PRIMARY CLINICAL RECORDS. [employer] provides no warranty or guarantee of the accuracy or completeness of information in this document.
[2024-09-02 10:12] LABS: Basophils Percent Auto 0.3 % (0.2-2.0); Eosinophils Absolute Auto 0.1 10^3/uL (0.0-0.7); Eosinophils Percent Auto 1.1 % (0.9-7.0); Hematocrit 40.9 % (36.0-48.0); Hemoglobin 13.3 g/dL (12.0-16.0); Immature Granulocytes Abs Auto 0.02 10^3/uL (0.00-0.03); Immature Granulocytes Pct Auto 0.3 % (0.0-0.5); Lymphocytes Absolute Auto 1.7 10^3/uL (1.2-3.8); Lymphocytes Percent Auto 27.1 % (20.5-60.0); Mean Corpuscular HGB Conc 32.5 g/dL (29.9-35.2); Mean Corpuscular Hemoglobin 28.7 pg (26.7-34.0); Mean Corpuscular Volume 88.1 fL (81.0-99.0); Mean Platelet Volume 9.3 fL (9.5-13.5); Monocytes Absolute Auto 0.4 10^3/uL (0.3-0.8); Monocytes Percent Auto 6.8 % (1.7-12.0); Neutrophils Absolute Auto 4.1 10^3/uL (1.4-6.5); Neutrophils Percent Auto 64.4 % (43.0-75.0); Platelet Count 233 10^3/uL (150-450); Red Blood Count 4.64 10^6/uL (4.20-5.40); Red Cell Distribution Width 12.2 % (11.0-15.0); White Blood Count 6.3 10^3/uL (4.0-11.0)
[2024-09-02 10:26] LABS: Creatinine Urine Random 143.26 mg/dL (20.00-300.00); Microalbum Creatinine Ratio Ur 15.3 mg/g (0.0-29.9); Microalbumin Urine Random 2.2 mg/dL (<=30.0)
[2024-09-02 10:51] LABS: Estimated Average Glucose 174 mg/dL; Glycohemoglobin A1C 7.7 % (4.5-6.2)
[2024-09-02 10:58] LABS: Alanine Aminotransferase 19 U/L (14-59); Albumin Level 3.6 g/dL (3.4-5.0); Alkaline Phosphatase 135 U/L (46-116); Anion Gap 8.2; Aspartate Amino Transferase 12 U/L (15-37); BUN Creatinine Ratio 13.7; Bilirubin Total 0.4 mg/dL (0.2-1.0); Calcium 9.4 mg/dL (8.5-10.1); Carbon Dioxide 30.8 mmol/L (21.0-32.0); Chloride 105 mmol/L (98-107); Cholesterol 192 mg/dL (<=200); Estimated GFR (African America >60 (>=60 mL/min/1.73m^2); Estimated GFR (Non-African Ame 57 (>=60 mL/min/1.73m^2); Globulin 3.6 g/dL; Glucose 166 mg/dL (74-106); HDL Cholesterol 63 mg/dL (40-60); Sodium 140 mmol/L (136-145); Total Protein 7.2 g/dL (6.4-8.2); Triglycerides 136 mg/dL (<=150); VLDL CHOLESTEROL 27.2 mg/dL
== END 2024-09-02 09:48 | disposition home or self-care (01) ==
LOC: LAB 09:49
PROVIDERS: PCP Internal Medicine; Visit Provider Internal Medicine
DX: E78.00 Pure hypercholesterolemia, unspecified (principal); I10 Essential (primary) hypertension; E11.65 Type 2 diabetes mellitus with hyperglycemia
CPT/HCPCS: 36415; 80053; 80061; 82043; 82570; 83036; 85025

== ENCOUNTER 2024-09-04 11:13 | Outpatient (RCR) | payer MEDICARE, SELFPAY | END 2024-10-04 08:19 | disposition home or self-care (01) | LOC: PT 11:13 | PROVIDERS: PCP Internal Medicine; Visit Provider Nurse Practitioner Family | DX: M17.12 Unilateral primary osteoarthritis, left knee (principal); Z98.890 Other specified postprocedural states; Z87.828 Personal history of other (healed) physical injury and trauma | CPT/HCPCS: 97035; 97110; 97140 ==

== ENCOUNTER 2024-12-24 09:07 | Outpatient (OUT) | payer MEDICARE, SELFPAY ==
[2024-12-24 09:38] LABS: Estimated Average Glucose 186 mg/dL; Glycohemoglobin A1C 8.1 % (4.5-6.2)
== END 2024-12-24 09:08 | disposition home or self-care (01) ==
LOC: LAB 09:09
PROVIDERS: PCP Internal Medicine; Visit Provider Internal Medicine
DX: E11.65 Type 2 diabetes mellitus with hyperglycemia (principal)
CPT/HCPCS: 36415; 83036